=== PATIENT | male | born 1990 | race Caucasian/White ===

== ENCOUNTER 2016-12-20 13:51 | Inpatient (IN) | payer MEDICAID, OTHER ==
[~2016-12-20] VITALS: Ht 165.1 cm; Wt 55.0 kg
[2016-12-20 13:54] VITALS: BP 132/85; PULSE 88; RESP 15; TEMP 97.7; O2SAT 100
--- NOTE | 2016-12-20 14:01 | PD ---
Physical Exam Time Seen by Provider: 13:57 Narrative 26yo M sent by Yazan Og for possible seizure activity today. He is detoxing from alcohol. Reports marijuana use, but denies other illicit drug or IV use. Patient seen in triage. VS reviewed. Awaiting bed placement. Data Data Last Documented VS Vital Signs Date Time Temp Pulse Resp B/P Pulse Ox O2 Delivery O2 Flow Rate FiO2 12/20/16 13:54 97.7 88 15 132/85 100 MDM Supervised Visit with MARIVEL: Ania Juárez Dec 20, 2016 14:01
--- NOTE | 2016-12-20 14:44 | PD ---
HPI . shaking and hallucinations at [facility] Chief Complaint: Alcohol/Drug Intoxication Time Seen by Provider: 14:44 Travel History International Travel<30 days: No Contact w/Intl Traveler<30days: No Traveled to known affect area: No History of Present Illness HPI 26-year-old male with history of alcoholism here after [facility] here due to some shaking, hallucinations and what seems to be described as acute psychosis. Patient tells me that he was at [facility] and he started to feel a little bit shaky after breakfast. He says that all of a sudden he noticed that his body was shaking and he felt like he was overheating. He recalls all the events and says that people told him that he looked like he may have been having a seizure. He remembers nursing staff checking on him and remembers them rushing to try to get him to sit down and calm down. He had to be given medications to calm down. He says that he checked them [facility] on due to alcoholism and was going through detox program. He was on Ativan and being tapered down. He said he felt very dizzy and shaky. He also experienced some lightheadedness. He recalls all of the events. He also reports right upper quadrant abdominal pain. He says he has had it for some time. His mom is concerned as she thinks he may be slightly jaundiced. I contacted a nurse at [facility] named Chika. She gave me a description of what exactly happened. She tells me the patient appeared to have some acute psychosis. He was hallucinating and seeing his mom and saying that he heard her voice. He was screaming for him mom to come get him. His mom actually was no were present. Patient also started having some words with the staff. He had a very sarcastic mannerism. Additionally, the nurse reports that patient was aware of everything that was going on. He was making mention of things that he was experiencing and telling staff what he wanted. Apparently he did have an episode of of urinating on himself, but was supposedly tied up in what was going on and did not make it to the bathroom on time. [facility] Social History Alcohol Use: Yes Tobacco Use: Yes Allergies-Medications (Allergen,Severity, Reaction): Coded Allergies: No Known Allergies (Unverified , 12/20/16) Reported Meds & Prescriptions Reported Meds & Active Scripts Active Reported [asthma inhaler] DIRECTED Review of Systems General / Constitutional: No: Fever Eyes: No: Visual changes HENT: No: Headaches Cardiovascular: No: Chest Pain or Discomfort Respiratory: No: Shortness of Breath Gastrointestinal: No: Abdominal Pain Genitourinary: No: Dysuria Musculoskeletal: No: Pain Skin: No Rash Neurologic: Positive: Dizziness, No: Weakness Psychiatric: No: Depression Endocrine: No: Polydipsia Hematologic/Lymphatic: No: Easy Bruising Physical Exam Narrative GENERAL: AAO x 3, disheveled appearance SKIN: Warm and dry. No visible rashes or bruising. HEAD: Normocephalic and atraumatic. EYES: mild icterus, EOM intact ENT: No nasal drainage noted. Mucous membranes pink. Airway patent. NECK: Supple, trachea midline. No JVD. CARDIOVASCULAR: Regular rate and rhythm without murmurs, gallops, or rubs. RESPIRATORY: Breath sounds equal bilaterally. No accessory muscle use. No rhonchi or rales. GASTROINTESTINAL: Abdomen soft, + RUQ tenderness, + Gomez's sign EXTREMITIES: No cyanosis or edema. BACK: Nontender without obvious deformity. No CVA tenderness. NEURO: CN II-12 intact, design and sales consultant strength normal b/l, UE and LE 5/5, no focal deficits, no tremor present, PSYCH: AAO x 3, normal affect. Data Data Last Documented VS Vital Signs Date Time Temp Pulse Resp B/P Pulse Ox O2 Delivery O2 Flow Rate FiO2 12/20/16 13:54 97.7 88 15 132/85 100 Orders Ammonia (12/20/16 14:56) Complete Blood Count With Diff (12/20/16 14:56) Comprehensive Metabolic Panel (12/20/16 14:56) Prothrombin Time / Inr (Pt) (12/20/16 14:56) Act Partial Throm Time (Ptt) (12/20/16 14:56) Urinalysis - C+S If Indicated (12/20/16 14:56) Blood Glucose (12/20/16 14:56) Ecg Monitoring (12/20/16 14:56) Iv Access Insert/Monitor (12/20/16 14:56) Oximetry (12/20/16 14:56) Sodium Chloride 0.9% Flush (Ns Flush) (12/20/16 15:00) Drug Screen, Random Urine (12/20/16 14:56) Alcohol (Ethanol) (12/20/16 14:56) Psych Screen (12/20/16 14:56) Ondansetron Odt (Zofran Odt) (12/20/16 16:00) Us Abdomen Gallbladder (12/20/16 16:27) Lactulose Liq (Lactulose Liq) (12/20/16 16:30) Lipase (12/20/16 17:33) Labs Laboratory Tests Test 12/20/16 15:10 White Blood Count 5.8 TH/MM3 Red Blood Count 5.03 MIL/MM3 Hemoglobin 16.3 GM/DL Hematocrit 46.6 % Mean Corpuscular Volume 92.5 FL Mean Corpuscular Hemoglobin 32.4 PG Mean Corpuscular Hemoglobin 35.0 % Concent Red Cell Distribution Width 12.8 % Platelet Count 93 TH/MM3 Mean Platelet Volume 9.6 FL Neutrophils (%) (Auto) 42.0 % Lymphocytes (%) (Auto) 32.3 % Monocytes (%) (Auto) 22.3 % Eosinophils (%) (Auto) 1.7 % Basophils (%) (Auto) 1.7 % Neutrophils # (Auto) 2.4 TH/MM3 Lymphocytes # (Auto) 1.9 TH/MM3 Monocytes # (Auto) 1.3 TH/MM3 Eosinophils # (Auto) 0.1 TH/MM3 Basophils # (Auto) 0.1 TH/MM3 CBC Comment DIFF FINAL Differential Comment Prothrombin Time 10.4 SEC Prothromb Time International 0.9 RATIO Ratio Activated Partial 27.1 SEC Thromboplast Time Urine Color YELLOW Urine Turbidity CLEAR Urine pH 6.0 Urine Specific [place] 1.009 Urine Protein NEG mg/dL Urine Glucose (UA) NEG mg/dL Urine Ketones NEG mg/dL Urine Occult Blood NEG Urine Nitrite NEG Urine Bilirubin NEG Urine Urobilinogen LESS THAN 2.0 MG/DL Urine Leukocyte Esterase NEG Urine RBC 1 /hpf Urine WBC LESS THAN 1 /hpf Microscopic Urinalysis Comment CATH-CULT NOT IND Sodium Level 136 MEQ/L Potassium Level 3.8 MEQ/L Chloride Level 99 MEQ/L Carbon Dioxide Level 29.4 MEQ/L Anion Gap 8 MEQ/L Blood Urea Nitrogen 9 MG/DL Creatinine 0.82 MG/DL Estimat Glomerular Filtration 112 ML/MIN Rate Random Glucose 78 MG/DL Calcium Level 9.7 MG/DL Total Bilirubin 2.0 MG/DL Aspartate Amino Transf 254 U/L (AST/SGOT) Alanine Aminotransferase 247 U/L (ALT/SGPT) Alkaline Phosphatase 135 U/L Ammonia 42 MCMOL/L Total Protein 7.7 GM/DL Albumin 4.2 GM/DL Lipase 181 U/L Urine Opiates Screen NEG Urine Barbiturates Screen NEG Urine Amphetamines Screen NEG Urine Benzodiazepines Screen POS Urine Cocaine Screen NEG Urine Cannabinoids Screen POS Ethyl Alcohol Level LESS THAN 3 MG/DL MDM Medical Decision Making Medical Screen Exam Complete: Yes Emergency Medical Condition: Yes Medical Record Reviewed: Yes Differential Diagnosis Cholecystitis, cholelithiasis, pancreatitis, acute psychosis, drug-induced mood disorder Narrative Course 26-year-old male here with shaking, dizziness, hallucinations or abdominal pain. Patient is fairly unremarkable except for right upper quadrant tenderness and Gomez sign. Labs have been ordered. Ultrasound abdomen has been ordered. Last Impressions Gall Bladder Ultrasound 12/20/16 1627 Signed Impressions: Service Date/Time: Tuesday, December 20, 2016 16:33 - CONCLUSION: 1. Increased echogenicity of the liver suggesting diffuse fatty infiltration. 2. No gallstones identified. Maik Lopez MD Laboratory Tests Test 12/20/16 15:10 White Blood Count 5.8 TH/MM3 Red Blood Count 5.03 MIL/MM3 Hemoglobin 16.3 GM/DL Hematocrit 46.6 % Mean Corpuscular Volume 92.5 FL Mean Corpuscular Hemoglobin 32.4 PG Mean Corpuscular Hemoglobin 35.0 % Concent Red Cell Distribution Width 12.8 % Platelet Count 93 TH/MM3 Mean Platelet Volume 9.6 FL Neutrophils (%) (Auto) 42.0 % Lymphocytes (%) (Auto) 32.3 % Monocytes (%) (Auto) 22.3 % Eosinophils (%) (Auto) 1.7 % Basophils (%) (Auto) 1.7 % Neutrophils # (Auto) 2.4 TH/MM3 Lymphocytes # (Auto) 1.9 TH/MM3 Monocytes # (Auto) 1.3 TH/MM3 Eosinophils # (Auto) 0.1 TH/MM3 Basophils # (Auto) 0.1 TH/MM3 CBC Comment DIFF FINAL Differential Comment Prothrombin Time 10.4 SEC Prothromb Time International 0.9 RATIO Ratio Activated Partial 27.1 SEC Thromboplast Time Urine Color YELLOW Urine Turbidity CLEAR Urine pH 6.0 Urine Specific [place] 1.009 Urine Protein NEG mg/dL Urine Glucose (UA) NEG mg/dL Urine Ketones NEG mg/dL Urine Occult Blood NEG Urine Nitrite NEG Urine Bilirubin NEG Urine Urobilinogen LESS THAN 2.0 MG/DL Urine Leukocyte Esterase NEG Urine RBC 1 /hpf Urine WBC LESS THAN 1 /hpf Microscopic Urinalysis Comment CATH-CULT NOT IND Sodium Level 136 MEQ/L Potassium Level 3.8 MEQ/L Chloride Level 99 MEQ/L Carbon Dioxide Level 29.4 MEQ/L Anion Gap 8 MEQ/L Blood Urea Nitrogen 9 MG/DL Creatinine 0.82 MG/DL Estimat Glomerular Filtration 112 ML/MIN Rate Random Glucose 78 MG/DL Calcium Level 9.7 MG/DL Total Bilirubin 2.0 MG/DL Aspartate Amino Transf 254 U/L (AST/SGOT) Alanine Aminotransferase 247 U/L (ALT/SGPT) Alkaline Phosphatase 135 U/L Ammonia 42 MCMOL/L Total Protein 7.7 GM/DL Albumin 4.2 GM/DL Lipase 181 U/L Urine Opiates Screen NEG Urine Barbiturates Screen NEG Urine Amphetamines Screen NEG Urine Benzodiazepines Screen POS Urine Cocaine Screen NEG Urine Cannabinoids Screen POS Ethyl Alcohol Level LESS THAN 3 MG/DL I discussed all the results with patient and his parents who are at bedside. I recommend psych screen as patient appeared to have some acute psychosis at his detox facility per nurse's report. Patient and parents are in agreement. I explained all the results from the work appear in the emergency department including elevated LFTs and liver ultrasound. Patient's mom that she will have to proceed with further work up on outpatient basis. I discussed the minimally elevated ammonia level. I recommend outpatient workup for possible liver cirrhosis and liver disease. He does have some family history of liver disease and will need outpatient follow-up. He has been medically cleared for psych screen. Diagnosis Primary Impression: RUQ abdominal pain Additional Impressions: Alcohol abuse Acute psychosis Additional Instructions: Please follow up with a primary care doctor for further workup and treatment of your liver. Condition: Stable Domi Jones Dec 20, 2016 14:44
[2016-12-20] MEDS ORDERED: asthma inhaler (14:56)
[2016-12-20] MEDS ORDERED: SODIUM CHLORIDE 0.9% FLUSH 5 ML FLUSH IV FLUSH PRN (15:00)
[2016-12-20 15:29] LABS: AUTOMATED NEUTROPHIL # 2.4 TH/MM3 (1.8-7.7); BASOPHIL # 0.1 TH/MM3 (0-0.2); BASOPHIL % 1.7 % (0.0-2.0); EOSINOPHIL # 0.1 TH/MM3 (0-0.4); EOSINOPHIL % 1.7 % (0.0-4.0); HEMATOCRIT 46.6 % (39.0-51.0); LYMPH % 32.3 % (9.0-44.0); LYMPHOCYTE # 1.9 TH/MM3 (1.0-4.8); MEAN CELL VOLUME 92.5 FL (80.0-100.0); MEAN CORPUSCULAR HEMOGLOBIN 32.4 PG (27.0-34.0); MONO % 22.3 % (0.0-8.0); PLATELET COUNT 93 TH/MM3 (150-450); RED BLOOD COUNT 5.03 MIL/MM3 (4.50-5.90); RED CELL DISTRIBUTION WIDTH 12.8 % (11.6-17.2); WHITE BLOOD COUNT 5.8 TH/MM3 (4.0-11.0)
[2016-12-20 15:31] LABS: BLOOD, URINE NEG (NEG); COMMENT (UR) CATH-CULT NOT IND; CULTURE IF INDICATED CATH CULTURE NOT IND; GLUCOSE,URINE NEG (NEG); KETONE, URINE NEG (NEG); NITRITE,URINE NEG (NEG); URINE COLOR YELLOW (YELLW/STRAW)
[2016-12-20 15:44] LABS: HEMO FLAGS DIFF FINAL
[2016-12-20 15:46] LABS: ANION GAP 8 MEQ/L (5-15); AST (GOT) 254 U/L (15-37); BICARBONATE 29.4 MEQ/L (21.0-32.0); BLOOD UREA NITROGEN 9 MG/DL (7-18); CHLORIDE 99 MEQ/L (98-107); GLOMERULAR FILTRATION RATE 112 ML/MIN (>89); POTASSIUM 3.8 MEQ/L (3.5-5.1); SODIUM (NA) 136 MEQ/L (136-145)
[2016-12-20 15:49] LABS: ALKALINE PHOSPHATASE 135 U/L (45-117); ALT (GPT) 247 U/L (12-78)
[2016-12-20 15:56] LABS: ALCOHOL LESS THAN 3 MG/DL (0-5)
[2016-12-20 15:59] LABS: APTT (PATIENT) 27.1 SEC (24.3-30.1); INTERNATIONAL NORMALIZED RATIO 0.9 RATIO; PROTHROMBIN TIME - PATIENT 10.4 SEC (9.8-11.6)
[2016-12-20] MEDS ORDERED: ONDANSETRON ODT 4 MG TAB PO ONE (16:00)
[2016-12-20] MEDS ORDERED: LACTULOSE SYRUP 20 GM/30 ML CUP PO ONE (16:30)
--- NOTE | 2016-12-20 17:25 | RADRPT ---
EXAM DATE/TIME: 12/20/2016 16:33 [facility] COMPARISON: No previous studies available for comparison. INDICATIONS : Right upper quadrant pain. MEDICAL HISTORY : Right upper quadrant pain. Asthma. Alcohol use. Substance use. SURGICAL HISTORY : None. ENCOUNTER: Initial ACUITY: > 1 year PAIN SCORE: 9/10 LOCATION: Right upper quadrant MEASUREMENTS: LIVER: 14.6 cm length COMMON DUCT: Non-visualized RIGHT KIDNEY: 9.8 x 6.0 x 5.8 cm FINDINGS: LIVER: There is diffusely increased echogenicity of the liver suggesting fatty infiltration. No mass is seen . The portal vein is patent. COMMON DUCT: No intraluminal mass or stone visualized. GALLBLADDER: Contains no stones, demonstrates no wall thickening or pericholecystic fluid. PANCREAS: The pancreas was not visualized due to overlying bowel gas. RIGHT KIDNEY: No evidence of hydronephrosis, stone, or mass. CONCLUSION: 1. Increased echogenicity of the liver suggesting diffuse fatty infiltration. 2. No gallstones identified. Maik Lopez MD on December 20, 2016 at 17:19 Board Certified Radiologist. This report was verified electronically.
[2016-12-20 18:33] VITALS: BP 120/83; PULSE 89; RESP 20; O2SAT 7; O2SAT 97
[2016-12-20 21:14] VITALS: BP 119/90; PULSE 88; RESP 20; O2SAT 98
[2016-12-20 22:07] VITALS: BP 137/90; PULSE 135; RESP 20; O2SAT 97
[2016-12-20] MEDS ORDERED: ACETAMINOPHEN 325 MG TAB PO PRN (23:45)
[2016-12-20] MEDS ORDERED: MAGNESIUM HYDROXIDE SUSP 30 ML CUP PO PRN (23:45)
[2016-12-20] MEDS ORDERED: FLUMAZENIL 0.5 MG/5 ML VIAL IV PUSH PRN (23:45)
[2016-12-20] MEDS ORDERED: diphenhydrAMINE HCL 50 MG/ML VIAL - HS PRN IM (23:45)
[2016-12-20] MEDS ORDERED: ALUMINUM/MAGNESIUM/SIMETH 30 ML CUP PO PRN (23:45)
[2016-12-20] MEDS ORDERED: LORazepam 2 MG/ML VIAL IV PUSH PRN ×3 (23:45)
[2016-12-20] MEDS ORDERED: hydrOXYzine HCL 50 MG TAB PO PRN (23:45)
[2016-12-20] MEDS ORDERED: diphenhydrAMINE HCL 50 MG CAP PO PRN (23:45)
[2016-12-20] MEDS ORDERED: diphenhydrAMINE HCL 50 MG/ML VIAL IM PRN (23:45)
[2016-12-20] MEDS ORDERED: traZODone HCL 50 MG TAB PO PRN (23:45)
[2016-12-21] MEDS ORDERED: LORazepam 2 MG/ML VIAL IM ONE
[2016-12-21] MEDS: risperiDONE 1 MG TAB PO SCH ×3 (00:07→20:27)
[2016-12-21] MEDS: LORazepam 1 MG TAB PO PRN ×2 (01:34→09:25)
[2016-12-21 01:45] VITALS: BP 122/74; PULSE 120; RESP 20; TEMP 97.9; O2SAT 98
[2016-12-21] MEDS: LORazepam 2 MG/ML VIAL IV PUSH PRN (02:05)
[2016-12-21] MEDS: LORazepam 2 MG TAB PO PRN ×5 (03:39→22:34)
[2016-12-21 05:17] VITALS: BP 117/72; PULSE 98; RESP 18; TEMP 98.4; O2SAT 98
[2016-12-21] MEDS: NICOTINE 21 MG/24 HR PATCH T-DERMAL SCH (09:25)
--- NOTE | 2016-12-21 10:50 | HHI.HP ---
Provisional Diagnosis Admission Date Dec 21, 2016 at 00:37 Deal I. Unspecified psychosis, R/O delirium due to alcohol withdrawal, R/o metabolic encephalopathy Deal II. Deferred Deal III. No significant medical history Certification of Person's Competence To Provide Express and Informed Consent I have personally examined Kevyn Rojo II , a person being served at [facility] on, Dec 21, 2016 10:21. Express and informed consent means consent voluntarily given in writing, by a competent person, after sufficient explanation and disclosure of the subject matter involved to enable the person to make a knowing and willful decision without any element of force, fraud, deceit, duress, or other form of constraint or coercion. This person is 18 years of age or older, is not now known to be incompetent to consent to treatment with a guardian advocate, and does not have a health care surrogate or proxy currently making medical treatment decisions. I have found this person to be one of the following: [X] Competent to provide express and informed consent, as defined above, for voluntary admission to this facility and is competent to provide express and informed consent for treatment. He/she has the consistent capacity to make well reasoned, willful, and knowing decisions concerning his or her medical or mental health treatment. The person fully and consistently understands the purpose of the admission for examination/placement and is fully capable of personally exercising all rights assured under [place] [] Incompetent to provide express and informed consent to voluntary admission, and this is incompetent to provide express and informed consent to treatment. The person must be transferred to involuntary status and a petition for a guardian advocate filed with the Circuit Court. [] Refusing to provide express and informed consent to voluntary admission but is competent to provide express and informed consent for treatment. The person must be discharged or transferred to involuntary status. Form shall be completed within 24 hours of a person's arrival at the receiving facility and filed in the clinical record of each person: 1. Admitted on a voluntary basis 2. Permitted to provide express and informed consent to his/her own treatment 3. Allowed to transfer from involuntary to voluntary status 4. Prior to permitting a person to consent to his or her own treatment after having been previously found incompetent to consent to treatment. History of Present Illness Capacity: Has Capacity HPI Patient is a 26-year-old man, domicile with his mother, employed, but , with psychiatric history of severe alcoholism, history of previous detoxes and rehabs, he has been in detox 3 times this year, with psychiatric history, no previous suicidal attempts,here after [facility] here due to some shaking, hallucinations and what seems to be described as acute psychosis. Patient tells me that he was at [facility] and he started to feel a little bit shaky after breakfast. As per ER documentation: Marlin ocampo says that all of a sudden he noticed that his body was shaking and he felt like he was overheating. He recalls all the events and says that people told him that he looked like he may have been having a seizure. He remembers nursing staff checking on him and remembers them rushing to try to get him to sit down and calm down. He had to be given medications to calm down. He says that he checked them distort [facility] on due to alcoholism and was going through detox program. He was on Ativan and being tapered down. He said he felt very dizzy and shaky. He also experienced some lightheadedness. He recalls all of the events. Patient was found with significant elevation of liver enzyme as and ammonium, he was treated with order lactulose, ammonia levels improved, and patient was medically clear to psychiatry. The Evaluation today patient seems to be very confused, he doesn't know the reason his in the hospital, he says that he mostly came here because "my liver is very sick"but the patient is requesting to be discharged back home "doesn't have to work and I have to take care of my daughter". However as I am evaluating the patient his looking constantly outside, visibly paranoid, asking for those people that are in the ross there is nobody. He also has been stating that there are several ants in his room and they are crawling in his skin. In the unit the patient has been confused, walking in the ross, entering to others patient's room, not aggressive or agitated. Patient denies suicidal and homicidal ideation, she is partially oriented in time and place. He reports almost daily use of marijuana, heavy use of alcohol, but he has been sober for the last 2 weeks. Review of Systems Constitutional: DENIES: Diaphoretic episodes, Fatigue, Fever, Weight gain, Weight loss, Chills, Dizziness, Change in appetite, Night Sweats Endocrine: DENIES: Heat/cold intolerance, Polydipsia, Polyuria, Polyphagia Ears, nose, mouth, throat: DENIES: Tinnitus, Hearing loss, Vertigo, Nasal discharge, Oral lesions, Throat pain, Hoarseness, Ear Pain, Running Nose, Epistaxis, Sinus Pain, Toothache, Odynophagia Respiratory: DENIES: Apneas, Cough, Snoring, Wheezing, Hemoptysis, Sputum production, Shortness of breath Cardiovascular: DENIES: Chest pain, Palpitations, Syncope, Dyspnea on Exertion , PND, Lower Extremity Edema, Orthopnea, Claudication Psychiatric: COMPLAINS OF: Anxiety, Hallucinations, Delusions Substance Abuse History Drugs/Alcohol past 12 months Patient uses about 5-7 drinks of alcohol every day, but has been sober for the last 2 weeks. He reports daily use of marijuana Past Family Social History Coded Allergies: No Known Allergies (Unverified , 12/20/16) Reported Medications [asthma inhaler] No Conflict Check As Directed 12/20/16 Current Medications Medications (Trade) Dose Ordered Sig/Vitaliy Route Start Time Stop Time Status Last Admin (NS Flush) 2 ml UNSCH PRN IV FLUSH 12/20/16 15:00 (risperDAL) 1 mg BID PO 12/21/16 00:07 12/21/16 09:25 (Atarax) 50 mg Q6H PRN PO 12/20/16 23:45 (Benadryl) 50 mg Q6H PRN PO 12/20/16 23:45 12/21/16 09:25 (Benadryl Inj) 50 mg Q6H PRN IM 12/20/16 23:45 (Benadryl) 50 mg HS PRN PO 12/20/16 23:45 (Benadryl Inj) 50 mg HS PRN IM 12/20/16 23:45 (Desyrel) 50 mg HS PRN PO 12/20/16 23:45 (Tylenol) 650 mg Q4H PRN PO 12/20/16 23:45 (Milk Of Magnesia Liq) 30 ml DAILY PRN PO 12/20/16 23:45 (Mag-Al Plus Susp Liq) 30 ml Q6H PRN PO 12/20/16 23:45 (Habitrol 21 Mg Patch.24 Hr) 1 patch DAILY T-DERMAL 12/21/16 09:00 12/21/16 09:25 Miscellaneous Information 1 HS T-DERMAL 12/21/16 21:00 (Ativan) 1 mg Q4H PRN PO 12/20/16 23:45 12/21/16 09:25 (Ativan Inj) 1 mg Q4H PRN IV PUSH 12/20/16 23:45 (Ativan) 2 mg Q2H PRN PO 12/20/16 23:45 12/21/16 03:39 (Ativan Inj) 2 mg Q2H PRN IV PUSH 12/20/16 23:45 12/21/16 02:05 (Ativan Inj) 2 mg Q1H PRN IV PUSH 12/20/16 23:45 (Ativan Inj) 2 mg Q15M PRN IV PUSH 12/20/16 23:45 (Romazicon Inj) 0.2 mg Q1M PRN IV PUSH 12/20/16 23:45 Family History His father is alcoholic, he has an uncle with paranoid schizophrenia Social History Patient was born and raised in [place], he lives with his mother, his but , he has a 2 years old daughter, employed in construction, his highest level of education is high school Patient's Strengths (min. 2) Family support, employed Physical Exam No tremors, no EPS, no withdrawal symptoms, no psychomotor agitation or retardation present Vital Signs Vital Signs Date Time Temp Pulse Resp B/P Pulse Ox O2 Delivery O2 Flow Rate FiO2 12/21/16 05:17 98.4 98 18 117/72 98 12/20/16 22:07 Room Air Lab Results Labs Laboratory Tests Test 12/20/16 15:10 White Blood Count 5.8 TH/MM3 Red Blood Count 5.03 MIL/MM3 Hemoglobin 16.3 GM/DL Hematocrit 46.6 % Mean Corpuscular Volume 92.5 FL Mean Corpuscular Hemoglobin 32.4 PG Mean Corpuscular Hemoglobin 35.0 % Concent Red Cell Distribution Width 12.8 % Platelet Count 93 TH/MM3 Mean Platelet Volume 9.6 FL Neutrophils (%) (Auto) 42.0 % Lymphocytes (%) (Auto) 32.3 % Monocytes (%) (Auto) 22.3 % Eosinophils (%) (Auto) 1.7 % Basophils (%) (Auto) 1.7 % Neutrophils # (Auto) 2.4 TH/MM3 Lymphocytes # (Auto) 1.9 TH/MM3 Monocytes # (Auto) 1.3 TH/MM3 Eosinophils # (Auto) 0.1 TH/MM3 Basophils # (Auto) 0.1 TH/MM3 CBC Comment DIFF FINAL Differential Comment Prothrombin Time 10.4 SEC Prothromb Time International 0.9 RATIO Ratio Activated Partial 27.1 SEC Thromboplast Time Urine Color YELLOW Urine Turbidity CLEAR Urine pH 6.0 Urine Specific [place] 1.009 Urine Protein NEG mg/dL Urine Glucose (UA) NEG mg/dL Urine Ketones NEG mg/dL Urine Occult Blood NEG Urine Nitrite NEG Urine Bilirubin NEG Urine Urobilinogen LESS THAN 2.0 MG/DL Urine Leukocyte Esterase NEG Urine RBC 1 /hpf Urine WBC LESS THAN 1 /hpf Microscopic Urinalysis Comment CATH-CULT NOT IND Sodium Level 136 MEQ/L Potassium Level 3.8 MEQ/L Chloride Level 99 MEQ/L Carbon Dioxide Level 29.4 MEQ/L Anion Gap 8 MEQ/L Blood Urea Nitrogen 9 MG/DL Creatinine 0.82 MG/DL Estimat Glomerular Filtration 112 ML/MIN Rate Random Glucose 78 MG/DL Calcium Level 9.7 MG/DL Total Bilirubin 2.0 MG/DL Aspartate Amino Transf 254 U/L (AST/SGOT) Alanine Aminotransferase 247 U/L (ALT/SGPT) Alkaline Phosphatase 135 U/L Ammonia 42 MCMOL/L Total Protein 7.7 GM/DL Albumin 4.2 GM/DL Lipase 181 U/L Urine Opiates Screen NEG Urine Barbiturates Screen NEG Urine Amphetamines Screen NEG Urine Benzodiazepines Screen POS Urine Cocaine Screen NEG Urine Cannabinoids Screen POS Ethyl Alcohol Level LESS THAN 3 MG/DL Mental Status Examination Appearance man, age appearing, good hygiene, is just superficially cooperative, restless confused Speech: Hesitant Orientation: Person, Place (partially), Time (partially) Memory: Unremarkable Thought Process: Loose Association, Thought Blocking Language Limited due to level of confusion Fund of Knowledge Limited due to level of confusion Attention and Concentration: Abnormal Suicidal Ideation: No Previous Suicide Attempts: No Homicidal Ideation: No Previous Homicide Attempts: No Insight: Poor Judgment: Poor Affect: Irritable Mood: Anxious Motor Activity: Normal gait Assessment & Plan Problem List: (1) Unspecified psychosis Assessment & Plan: On psychiatric evaluation today patient presents with active confusion, restlessness, internally stimulated, disoriented and paranoid. Patient doesn't have any previous psychiatric history other than severe alcohol abuse, he was recently detoxed in [facility], was DC yesterday with [facility]. At this point is unclear if current presentation is secondary to metabolic encephalopathy, initially patient had elevated amnion levels(42) and liver enzymes, but ammonia levels are trending down to normal now (20), alcohol withdrawal or due to a primary major psychiatric illness decompensation. This was discussed with Dr. Johnson, he suggested the patient should be transferred to the med psych unit. Continue Risperdal 1 mg twice a day for psychosis. [facility] protocol. pantry goods worker intervention for psychosocial assessment, collateral information, to coordinate a safe discharge. ICD Code: F29 Assessment & Plan Estimated LOS: days Tariq Huffman MD Dec 21, 2016 10:50
--- NOTE | 2016-12-21 15:06 | RADRPT ---
EXAM DATE/TIME: 12/21/2016 14:22 [facility] COMPARISON: No previous studies available for comparison. INDICATIONS : Chest discomfort; encephalopathy. MEDICAL HISTORY : None. SURGICAL HISTORY : None. ENCOUNTER: Initial ACUITY: 1 day PAIN SCORE: 2/10 LOCATION: Bilateral chest FINDINGS: A single view of the chest demonstrates the lungs to be symmetrically aerated without evidence of mas s, infiltrate or effusion. The cardiomediastinal contours are unremarkable. Osseous structures are intact. CONCLUSION: No acute disease. Robel Yañez MD on December 21, 2016 at 15:04 Board Certified Radiologist. This report was verified electronically.
[2016-12-21 16:41] LABS: AUTOMATED NEUTROPHIL # 1.8 TH/MM3 (1.8-7.7); BASOPHIL # 0.1 TH/MM3 (0-0.2); BASOPHIL % 2.5 % (0.0-2.0); EOSINOPHIL # 0.1 TH/MM3 (0-0.4); EOSINOPHIL % 1.5 % (0.0-4.0); HEMATOCRIT 45.4 % (39.0-51.0); HEMO FLAGS DIFF FINAL; LYMPH % 34.4 % (9.0-44.0); LYMPHOCYTE # 1.7 TH/MM3 (1.0-4.8); MEAN CELL VOLUME 93.1 FL (80.0-100.0); MEAN CORPUSCULAR HEMOGLOBIN 32.6 PG (27.0-34.0); MONO % 24.9 % (0.0-8.0); NEUT % 36.7 % (16.0-70.0); PLATELET COUNT 120 TH/MM3 (150-450); RED BLOOD COUNT 4.88 MIL/MM3 (4.50-5.90); RED CELL DISTRIBUTION WIDTH 12.8 % (11.6-17.2); WHITE BLOOD COUNT 4.9 TH/MM3 (4.0-11.0)
[2016-12-21 17:00] LABS: ANION GAP 6 MEQ/L (5-15); AST (GOT) 239 U/L (15-37); BICARBONATE 27.8 MEQ/L (21.0-32.0); BLOOD UREA NITROGEN 11 MG/DL (7-18); CHLORIDE 98 MEQ/L (98-107); GLOMERULAR FILTRATION RATE 119 ML/MIN (>89); MAGNESIUM 2.2 MG/DL (1.5-2.5); POTASSIUM 3.9 MEQ/L (3.5-5.1); SODIUM (NA) 132 MEQ/L (136-145)
[2016-12-21 17:01] LABS: ALT (GPT) 285 U/L (12-78)
[2016-12-21 17:04] LABS: ALKALINE PHOSPHATASE 128 U/L (45-117)
[2016-12-21 17:54] VITALS: BP 141/90; PULSE 93; RESP 17; TEMP 97.9; O2SAT 99
[2016-12-21] MEDS: chlordiazePOXIDE 25 MG CAP PO SCH ×2 (18:00→20:30)
[2016-12-21] MEDS: THIAMINE HCL 100 MG TAB PO SCH (18:00)
[2016-12-21] MEDS: FOLIC ACID 1 MG TAB PO SCH (18:00)
--- NOTE | 2016-12-21 18:11 | PD.CONS ---
[facility] Reason for Consult Assist in management of medical condition. elevated liver enzymes and ammonia level Primary Care Physician No Primary Care Physician Diagnoses: History of Present Illness Written by Cat Morelos, acting as scribe for Dr. Welsh on 12/21/16 at 17:57. This is a 26 year old male patient who reports past medical history include ETOH abuse x 12 years. Patient reports he stopped drinking alcohol 8 days ago and since that time has been in [facility] going through detox. Patient reports he has had seizure about 1 year ago related to ETOH withdraw. Patient is a poor historian information gathered from patient as well as prior computerized charting. Patient was here due to some shaking, hallucinations and what seems to be described as acute psychosis. Patient tells me that he was at [facility] and he started to feel a little bit shaky after breakfast. He says that all of a sudden he noticed that his body was shaking and he felt like he was overheating. He recalls all the events and says that people told him that he looked like he may have been having a seizure. He remembers nursing staff checking on him and remembers them rushing to try to get him to sit down and calm down. He had to be given medications to calm down. He says that he checked them [facility] on due to alcoholism and was going through detox program. He was on Ativan and being tapered down. He said he felt very dizzy and shaky. He also experienced some lightheadedness. He recalls all of the events. Apparently he did have an episode of of urinating on himself, but was supposedly tied up in what was going on and did not make it to the bathroom on time. Patient at this is in the inpatient psychiatric unit we have been consulted for assistance in management of medical condition. Elevated liver enzymes and ammonia level. Patient is visibly tremulous and reacting to external stimuli during interview process. Patient reports he sees shadows and ants crawling across the floor. Patient denies shortness of breath, chest pain, N/V/D/C. Patient does endorse subjective fevers, chills and abdominal pain. Patient points to the epigastric and LUQ reports the pain is a soreness with varying intensity and radiation around to his back. Patient unable to tell how long the pain has been present. Review of Systems Except as stated in HPI: all other systems reviewed are Neg Past Family Social History Allergies: Coded Allergies: No Known Allergies (Unverified , 12/20/16) Past Medical History ETOH abuse Past Surgical History denies prior surgeries Reported Medications asthma rescue inhaler as needed Active Ordered Medications Current Medications Medications (Trade) Dose Ordered Sig/Vitaliy Route Start Time Stop Time Status Last Admin (NS Flush) 2 ml UNSCH PRN IV FLUSH 12/20/16 15:00 (risperDAL) 1 mg BID PO 12/21/16 00:07 12/21/16 09:25 (Atarax) 50 mg Q6H PRN PO 12/20/16 23:45 (Benadryl) 50 mg Q6H PRN PO 12/20/16 23:45 12/21/16 09:25 (Benadryl Inj) 50 mg Q6H PRN IM 12/20/16 23:45 (Benadryl) 50 mg HS PRN PO 12/20/16 23:45 (Benadryl Inj) 50 mg HS PRN IM 12/20/16 23:45 (Desyrel) 50 mg HS PRN PO 12/20/16 23:45 (Milk Of Magnesia Liq) 30 ml DAILY PRN PO 12/20/16 23:45 (Mag-Al Plus Susp Liq) 30 ml Q6H PRN PO 12/20/16 23:45 12/21/16 16:30 (Habitrol 21 Mg Patch.24 Hr) 1 patch DAILY T-DERMAL 12/21/16 09:00 12/21/16 09:25 Miscellaneous Information 1 HS T-DERMAL 12/21/16 21:00 (Ativan) 1 mg Q4H PRN PO 12/20/16 23:45 12/21/16 09:25 (Ativan Inj) 1 mg Q4H PRN IV PUSH 12/20/16 23:45 (Ativan) 2 mg Q2H PRN PO 12/20/16 23:45 12/21/16 16:30 (Ativan Inj) 2 mg Q2H PRN IV PUSH 12/20/16 23:45 12/21/16 02:05 (Ativan Inj) 2 mg Q1H PRN IV PUSH 12/20/16 23:45 (Ativan Inj) 2 mg Q15M PRN IV PUSH 12/20/16 23:45 (Romazicon Inj) 0.2 mg Q1M PRN IV PUSH 12/20/16 23:45 (Lactulose Liq) 30 ml DAILY PO 12/22/16 09:00 Family History maternal uncle has seizure disorder Social History Lives with mother, and child are living [place] ETOH use- drank, "all day," for the last 12 years- stopped drinking alcohol 8 days ago Tobacco use: 1 pack every 5 days Illicit drug use: marijuana occasionally, has used cocaine but reports, "that was a long time ago." patient unable to give exact time line Physical Exam Vital Signs Vital Signs Date Time Temp Pulse Resp B/P Pulse Ox O2 Delivery O2 Flow Rate FiO2 12/21/16 05:17 98.4 98 18 117/72 98 12/21/16 01:45 97.9 120 20 122/74 98 12/20/16 22:07 135 20 137/90 97 Room Air 12/20/16 21:14 88 20 119/90 98 Room Air 12/20/16 18:33 89 20 120/83 97 Room Air Physical Exam GENERAL: This is a thin, well-developed patient, visible tremulous and reacting to external stimuli during interview process SKIN: No rashes, ecchymoses or lesions. Cool and dry. HEAD: Atraumatic. Normocephalic. No temporal or scalp tenderness. EYES: Extraocular motions intact. No scleral icterus. No injection or drainage. ENT: Nose without bleeding, purulent drainage or septal hematoma. Throat without erythema, tonsillar hypertrophy or exudate. Uvula midline. Airway patent. NECK: Trachea midline. No JVD or lymphadenopathy. Supple, nontender, no meningeal signs. CARDIOVASCULAR: tachycardic without murmurs, gallops, or rubs. RESPIRATORY: Clear to auscultation. Breath sounds equal bilaterally. No wheezes , rales, or rhonchi. GASTROINTESTINAL: Abdomen soft, tender to palpation midepigastric area and LUQ MUSCULOSKELETAL: Extremities without clubbing, cyanosis, or edema. No joint tenderness, effusion, or edema noted. No calf tenderness. Negative Homans sign bilaterally. NEUROLOGICAL: Awake and alert. Motor and sensory grossly within normal limits. Five out of 5 muscle strength in all muscle groups. Laboratory Laboratory Tests Test 12/21/16 12/21/16 07:25 16:28 Ammonia 20 White Blood Count 4.9 Red Blood Count 4.88 Hemoglobin 15.9 Hematocrit 45.4 Mean Corpuscular Volume 93.1 Mean Corpuscular Hemoglobin 32.6 Mean Corpuscular Hemoglobin 35.0 Concent Red Cell Distribution Width 12.8 Platelet Count 120 Mean Platelet Volume 8.6 Neutrophils (%) (Auto) 36.7 Lymphocytes (%) (Auto) 34.4 Monocytes (%) (Auto) 24.9 Eosinophils (%) (Auto) 1.5 Basophils (%) (Auto) 2.5 Neutrophils # (Auto) 1.8 Lymphocytes # (Auto) 1.7 Monocytes # (Auto) 1.2 Eosinophils # (Auto) 0.1 Basophils # (Auto) 0.1 CBC Comment DIFF FINAL Differential Comment Sodium Level 132 Potassium Level 3.9 Chloride Level 98 Carbon Dioxide Level 27.8 Anion Gap 6 Blood Urea Nitrogen 11 Creatinine 0.78 Estimat Glomerular Filtration 119 Rate Random Glucose 79 Calcium Level 9.2 Phosphorus Level 3.8 Magnesium Level 2.2 Total Bilirubin 2.0 Aspartate Amino Transf 239 (AST/SGOT) Alanine Aminotransferase 285 (ALT/SGPT) Alkaline Phosphatase 128 Total Protein 7.5 Albumin 4.3 Result Diagram: 12/21/16 1628 12/21/16 1628 Imaging Last Impressions Chest X-Ray 12/21/16 0000 Signed Impressions: Service Date/Time: Wednesday, December 21, 2016 14:22 - CONCLUSION: No acute disease. Robel Yañez MD Gall Bladder Ultrasound 12/20/16 1627 Signed Impressions: Service Date/Time: Tuesday, December 20, 2016 16:33 - CONCLUSION: 1. Increased echogenicity of the liver suggesting diffuse fatty infiltration. 2. No gallstones identified. Maik Lopez MD Assessment and Plan Assessment and Plan 26 year old male with hx of ETOH abuse sent from [facility] for shaking and hallucinations Substance induced mood disorder hallucinations management per psychiatric team Seizure likely related to ETOH withdraw ETOH withdraw Seizure precautions CT head without contrast ordered EEG ordered thiamine and folic acid supplementation [facility] protocol Librium scheduled 50mg Q8H- will taper Elevated liver enzymes and abd pain likely related to Alcohol induced hepatitis hepatitis profile ordered and pending Consult GI US gallbladder reviewed and reveals: 1. Increased echogenicity of the liver suggesting diffuse fatty infiltration. 2. No gallstones identified. CT abd/pelvis with IV contrast also ordered lipase 181 ammonia 42 ion admission decreased to 20 after lactulose, continue lactulose daily AMS- metabolic encephalopathy- likely relate to withdraw R/O infection causes UA reviewed negative for infection no culture indicated CXR reveals no acute disease process afebrile, WBC 5.8 --> 4.9 check TSH, RPR, B12 level DVT prophylaxis: avoid chemical DVT prophylaxis in light of liver disease, early ambulation with assistance This note was transcribed by alon []. I, Dr. Alexander Underwood personally performed the history, physical exam, and medical decision making; and confirmed the accuracy of the information in the transcribed note. Authenticated by Dr. Alexander Underwood on 12/21/16 at 18:13.. Cat Morelos Dec 21, 2016 18:11 Alexander Aguilar MD Dec 30, 2016 21:44
[2016-12-21] MEDS ORDERED: DIATRIZOATE MEGLUM/DIATRIZOATE SOD 9 ML CUP PO ONE ×2 (18:45→20:00)
[2016-12-21] MEDS: REMOVE OLD NICOTINE PATCH T-DERMAL SCH (20:27)
[2016-12-21] MEDS ORDERED: IOHEXOL 350 MG/ML 10 ML VIAL (for RAD DIAG) IV ONE (23:01)
[2016-12-21] MEDS: diphenhydrAMINE HCL 50 MG CAP - HS PRN PO (23:13)
--- NOTE | 2016-12-21 23:40 | RADRPT ---
EXAM DATE/TIME: 12/21/2016 22:48 [facility] COMPARISON: No previous studies available for comparison. INDICATIONS : Altered mental status. RADIATION DOSE: 53.65 CTDIvol (mGy) ; Tabletop CT Head MEDICAL HISTORY : Seizures. SURGICAL HISTORY : None. ENCOUNTER: Initial ACUITY: 1 day PAIN SCALE: 0/10 LOCATION: cranial TECHNIQUE: Multiple contiguous axial images were obtained of the head. Using automated exposure control and adj ustment of the mA and/or kV according to patient size, radiation dose was kept as low as reasonably a chievable to obtain optimal diagnostic quality images. DICOM format image data is available electro nically for review and comparison. FINDINGS: CEREBRUM: The ventricles are normal for age. No evidence of midline shift, mass lesion, hemorrhage or acute in farction. No extra-axial fluid collections are seen. POSTERIOR FOSSA: The cerebellum and brainstem are intact. The 4th ventricle is midline. The cerebellopontine angle i s unremarkable. EXTRACRANIAL: The visualized portion of the orbits is intact. SKULL: The calvaria is intact. No evidence of skull fracture. CONCLUSION: Negative noncontrast CT brain. Ravin Clemons MD on December 21, 2016 at 23:38 Board Certified Radiologist. This report was verified electronically.
--- NOTE | 2016-12-21 23:44 | RADRPT ---
EXAM DATE/TIME: 12/21/2016 22:51 [facility] COMPARISON: US ABDOMEN - GALLBLADDER, December 20, 2016, 16:33. INDICATIONS : Bilateral lower quadrant pain. IV CONTRAST: 75 cc Omnipaque 350 (iohexol) IV ORAL CONTRAST: Prescribed oral contrast ingested. RADIATION DOSE: 4.53 CTDIvol (mGy) MEDICAL HISTORY : None SURGICAL HISTORY : None. ENCOUNTER: Initial ACUITY: 2 days PAIN SCALE: 7/10 LOCATION: Bilateral lower quadrant TECHNIQUE: Volumetric scanning of the abdomen and pelvis was performed. Using automated exposure control and ad justment of the mA and/or kV according to patient size, radiation dose was kept as low as reasonably achievable to obtain optimal diagnostic quality images. DICOM format image data is available electro nically for review and comparison. FINDINGS: LOWER LUNGS: The visualized lower lungs are clear. LIVER: Enlarged liver measuring 18.2 cm in superior/inferior dimension. Diffuse fatty change throughout the liver. No focal lesions seen. No calcified gallstones. SPLEEN: Normal size without lesion. PANCREAS: Within normal limits. KIDNEYS: Normal in size and shape. There is no mass, stone or hydronephrosis. ADRENAL GLANDS: Within normal limits. VASCULAR: There is no aortic aneurysm. BOWEL/MESENTERY: No dilated loops of small or large bowel. Oral contrast passes through to the descending colon. No evidence of free fluid. ABDOMINAL WALL: Within normal limits. RETROPERITONEUM: There is no lymphadenopathy. BLADDER: Mildly distended. No wall thickening or mass. REPRODUCTIVE: Within normal limits. INGUINAL: There is no lymphadenopathy or hernia. MUSCULOSKELETAL: Within normal limits for patient age. CONCLUSION: 1. Hepatomegaly and diffuse fatty change in the liver without focal lesion. 2. Otherwise negative CT abdomen/pelvis with contrast. Ravin Clemons MD on December 21, 2016 at 23:39 Board Certified Radiologist. This report was verified electronically.
[2016-12-22] MEDS: LORazepam 2 MG TAB PO PRN ×3 (01:06→09:03)
[2016-12-22] MEDS: chlordiazePOXIDE 25 MG CAP PO SCH ×4 (05:36→22:00)
[2016-12-22 05:54] VITALS: BP 126/78; PULSE 127; RESP 18; TEMP 98.1; O2SAT 98
[2016-12-22] MEDS: SODIUM CHLOR 0.9% 1000 ML INJ 1,000 ML IV SCH ×2 (09:00→18:41)
[2016-12-22] MEDS: LACTULOSE SYRUP 20 GM/30 ML CUP PO SCH (09:02)
[2016-12-22] MEDS: THIAMINE HCL 100 MG TAB PO SCH (09:03)
[2016-12-22] MEDS: FOLIC ACID 1 MG TAB PO SCH (09:03)
[2016-12-22] MEDS: risperiDONE 1 MG TAB PO SCH ×3 (09:03→21:01)
[2016-12-22] MEDS: NICOTINE 21 MG/24 HR PATCH T-DERMAL SCH (09:04)
[2016-12-22] MEDS ORDERED: HALOPERIDOL LACTATE 5 MG/ML AMP IM STA ×2 (10:13→15:06)
--- NOTE | 2016-12-22 10:23 | HHI.PYPN ---
Subjective Remarks Patient was seen today for psychiatric reevaluation along with nursing charge Emily, patient is disorganized, tangential with Reuben loosening of associations having active visual hallucinations, he is irritable and labile, he states that the reason his crying is because her little baby last night , he says that his murdered her. He says that there are several people around him making fun of him. As we are in the room he counts five people in the room when is just really 3. Patient says that the also 5 pizzas in the bed brought by his mother this morning. Patient is oriented in person, but completely disoriented in place, he things that he is in a pizza store, however oriented in time. Patient has been compliant with medication, agitated, disruptive in the unit, but redirectable. Patient has fluctuating level of consciousness with poor attention span. His mother came to the unit yesterday stating that she found some pills of hallucinogens in his room. Review of Systems Constitutional: DENIES: Diaphoretic episodes, Fatigue, Fever, Weight gain, Weight loss, Chills, Dizziness, Change in appetite, Night Sweats Endocrine: DENIES: Heat/cold intolerance, Polydipsia, Polyuria, Polyphagia Eyes: DENIES: Blurred vision, Diplopia, Eye inflammation, Eye pain, Vision loss , Photosensitivity, Double Vision Ears, nose, mouth, throat: DENIES: Tinnitus, Hearing loss, Vertigo, Nasal discharge, Oral lesions, Throat pain, Hoarseness, Ear Pain, Running Nose, Epistaxis, Sinus Pain, Toothache, Odynophagia Respiratory: DENIES: Apneas, Cough, Snoring, Wheezing, Hemoptysis, Sputum production, Shortness of breath Cardiovascular: DENIES: Chest pain, Palpitations, Syncope, Dyspnea on Exertion , PND, Lower Extremity Edema, Orthopnea, Claudication Integumentary: DENIES: Abnormal pigmentation, Nail changes, Pruritus, Rash Hematologic/lymphatic: DENIES: Bruising, Lymphadenopathy Immunologic/allergic: DENIES: Eczema, Urticaria Neurologic: DENIES: Abnormal gait, Headache, Localized weakness, Paresthesias, Seizures, Speech Problems, Tremor, Poor Balance Psychiatric: COMPLAINS OF: Confusion, Hallucinations, Agitation, DENIES: Anxiety, Mood changes, Depression, Suicidal Ideation, Homicidal Ideation, Delusions Objective Alert: Yes [place]: Person, Place (disoriented), Date Mood: Agitated Affect: Labile Memory Intact: Comment (impaired) Hallucinations: Auditory, Visual Delusions: Yes Delusion Type: Paranoid Suicidal: Ideation (no SI) Homicidal: Ideation (no HI) Insight/Judgment Poor Labs Test 12/21/16 16:28 White Blood Count 4.9 TH/MM3 Red Blood Count 4.88 MIL/MM3 Hemoglobin 15.9 GM/DL Hematocrit 45.4 % Mean Corpuscular Volume 93.1 FL Mean Corpuscular Hemoglobin 32.6 PG Mean Corpuscular Hemoglobin 35.0 % Concent Red Cell Distribution Width 12.8 % Platelet Count 120 TH/MM3 Mean Platelet Volume 8.6 FL Neutrophils (%) (Auto) 36.7 % Lymphocytes (%) (Auto) 34.4 % Monocytes (%) (Auto) 24.9 % Eosinophils (%) (Auto) 1.5 % Basophils (%) (Auto) 2.5 % Neutrophils # (Auto) 1.8 TH/MM3 Lymphocytes # (Auto) 1.7 TH/MM3 Monocytes # (Auto) 1.2 TH/MM3 Eosinophils # (Auto) 0.1 TH/MM3 Basophils # (Auto) 0.1 TH/MM3 CBC Comment DIFF FINAL Differential Comment Sodium Level 132 MEQ/L Potassium Level 3.9 MEQ/L Chloride Level 98 MEQ/L Carbon Dioxide Level 27.8 MEQ/L Anion Gap 6 MEQ/L Blood Urea Nitrogen 11 MG/DL Creatinine 0.78 MG/DL Estimat Glomerular Filtration 119 ML/MIN Rate Random Glucose 79 MG/DL Calcium Level 9.2 MG/DL Phosphorus Level 3.8 MG/DL Magnesium Level 2.2 MG/DL Total Bilirubin 2.0 MG/DL Aspartate Amino Transf 239 U/L (AST/SGOT) Alanine Aminotransferase 285 U/L (ALT/SGPT) Alkaline Phosphatase 128 U/L Total Protein 7.5 GM/DL Albumin 4.3 GM/DL Vitamin B12 Level 1015 PG/ML Laboratories reviewed Vitals/IOs Vital Signs Date Time Temp Pulse Resp B/P Pulse Ox O2 Delivery O2 Flow Rate FiO2 12/22/16 05:54 98.1 127 18 126/78 98 12/20/16 22:07 Room Air Intake and Output 12/21/16 12/21/16 12/22/16 08:00 16:00 00:00 Intake Total 960 ml Balance 960 ml Assessment & Plan Problem List: (1) Unspecified psychosis Assessment & Plan: Patient is having active visual hallucinations, with Reuben loosening of associations, tangential, disoriented, with fluctuation of consciousness and poor attention span. Patient has been agitated, difficult to redirect. Presentation seems to correlate with metabolic encephalopathy that could be secondary liver abnormalities of alcohol withdrawal. Hallucinogens intoxication could be playing also are all in the etiology. Patient will be Breen acted for involuntary admission. Psychiatric consult for second opinion. We will increase Risperdal to 2 mg twice a day. Haldol 5 mg IM stat for agitation and hostility. ICD Code: F29 Assessment & Plan Estimated LOS: days Justification for Cont. Inpt. Patient is acutely psychotic and is to continue psychiatric hospitalization for stabilization. Tariq Huffman MD Dec 22, 2016 10:23
--- NOTE | 2016-12-22 11:14 | HHI.PR ---
Subjective Remarks Patient denies hallucinations however looks behind the nurse as if he is looking at something denies cp/sob (+) tremors seen with RN marianne still disorganized and tangential Objective Vitals Vital Signs Date Time Temp Pulse Resp B/P Pulse Ox O2 Delivery O2 Flow Rate FiO2 12/22/16 05:54 98.1 127 18 126/78 98 12/21/16 17:54 97.9 93 17 141/90 99 I/O 12/21/16 12/21/16 12/21/16 12/22/16 12/22/16 12/22/16 07:00 15:00 23:00 07:00 15:00 23:00 Intake Total 960 ml 480 ml Balance 960 ml 480 ml Intake Oral 960 ml 480 ml Result Diagram: 12/21/16 1628 12/21/16 1628 Imaging Last Impressions Head CT 12/21/16 0000 Signed Impressions: Service Date/Time: Wednesday, December 21, 2016 22:48 - CONCLUSION: Negative noncontrast CT brain. Ravin Clemons MD Chest X-Ray 12/21/16 0000 Signed Impressions: Service Date/Time: Wednesday, December 21, 2016 14:22 - CONCLUSION: No acute disease. Robel Yañez MD Abdomen/Pelvis CT 12/21/16 0000 Signed Impressions: Service Date/Time: Wednesday, December 21, 2016 22:51 - CONCLUSION: 1. Hepatomegaly and diffuse fatty change in the liver without focal lesion. 2. Otherwise negative CT abdomen/pelvis with contrast. Ravin Clemons MD Gall Bladder Ultrasound 12/20/16 1627 Signed Impressions: Service Date/Time: Tuesday, December 20, 2016 16:33 - CONCLUSION: 1. Increased echogenicity of the liver suggesting diffuse fatty infiltration. 2. No gallstones identified. Maik Lopez MD Objective Remarks Awake and alert Anxious, tremulous No respiratory distress S1S2 + tachycardic w regular rate and rythm Clear Lungs BL Abdomen is soft, has hyperactive bowel sounds no edema in lower extremities. Medications and IVs Current Medications Medications (Trade) Dose Ordered Sig/Vitaliy Route Start Time Stop Time Status Last Admin (NS Flush) 2 ml UNSCH PRN IV FLUSH 12/20/16 15:00 (Atarax) 50 mg Q6H PRN PO 12/20/16 23:45 12/22/16 02:56 (Benadryl) 50 mg Q6H PRN PO 12/20/16 23:45 12/21/16 09:25 (Benadryl Inj) 50 mg Q6H PRN IM 12/20/16 23:45 (Benadryl) 50 mg HS PRN PO 12/20/16 23:45 12/21/16 23:13 (Benadryl Inj) 50 mg HS PRN IM 12/20/16 23:45 (Desyrel) 50 mg HS PRN PO 12/20/16 23:45 12/22/16 01:51 (Milk Of Magnesia Liq) 30 ml DAILY PRN PO 12/20/16 23:45 (Mag-Al Plus Susp Liq) 30 ml Q6H PRN PO 12/20/16 23:45 12/21/16 16:30 (Habitrol 21 Mg Patch.24 Hr) 1 patch DAILY T-DERMAL 12/21/16 09:00 12/22/16 09:04 Miscellaneous Information 1 HS T-DERMAL 12/21/16 21:00 12/21/16 20:27 (Ativan) 1 mg Q4H PRN PO 12/20/16 23:45 12/21/16 09:25 (Ativan Inj) 1 mg Q4H PRN IV PUSH 12/20/16 23:45 (Ativan) 2 mg Q2H PRN PO 12/20/16 23:45 12/22/16 09:03 (Ativan Inj) 2 mg Q2H PRN IV PUSH 12/20/16 23:45 12/22/16 12:24 (Ativan Inj) 2 mg Q1H PRN IV PUSH 12/20/16 23:45 (Ativan Inj) 2 mg Q15M PRN IV PUSH 12/20/16 23:45 (Romazicon Inj) 0.2 mg Q1M PRN IV PUSH 12/20/16 23:45 (Lactulose Liq) 30 ml DAILY PO 12/22/16 09:00 12/22/16 09:02 (Vitamin B1) 100 mg DAILY PO 12/21/16 18:00 12/22/16 09:03 (Folate) 1 mg DAILY PO 12/21/16 18:00 12/22/16 09:03 Chlordiazepoxide 50 mg 50 mg Q8HR PO 12/21/16 18:00 12/22/16 05:36 (NS 1000 ml Inj) 1,000 ml @ 100 mls/hr Q10H IV 12/22/16 09:00 12/22/16 09:00 (risperDAL) 2 mg BID PO 12/22/16 21:00 (Protonix) 40 mg DAILY PO 12/22/16 11:45 12/22/16 11:45 A/P Assessment and Plan 6 year old male with hx of ETOH abuse sent from [place] for shaking and hallucinations Substance induced mood disorder hallucinations management per psychiatric team Seizure likely related to ETOH withdrawal ETOH withdrawal/Delirium tremens Seizure precautions CT head without contrast ordered and negative EEG ordered and pending Continue thiamine and folic acid supplementation Continue [facility] protocol Librium scheduled 50mg Q8H- will taper GI consulted Elevated liver enzymes and abd pain likely related to Alcohol induced hepatitis Fatty Liver hepatitis profile negative US gallbladder reviewed and reveals: 1. Increased echogenicity of the liver suggesting diffuse fatty infiltration. 2. No gallstones identified. lipase 181 ammonia 42 ion admission decreased to 20 after lactulose, continue lactulose daily CT abdomen and pelvis showed hepatomegaly and diffuse fatty change in the liver without focal lesion. Otherwise negative CT abdomen and pelvis. AMS- metabolic encephalopathy- likely relate to withdrawal R/O infection causes UA reviewed negative for infection no culture indicated CXR reveals no acute disease process afebrile, WBC 5.8 --> 4.9 check TSH, RPR, B12 level ----> appears negative, B12 level is normal, TSH is pending. Hyponatremia Likely hypovolemic hyponatremia. I will start the patient on IV fluids with normal saline. Continue to monitor BMP. Tachycardia Likely autonomic hyperreactivity due to alcohol withdrawal. I will check an EKG. DVT prophylaxis: avoid chemical DVT prophylaxis in light of liver disease, early ambulation with assistance Alexander Aguilar MD Dec 22, 2016 11:13
--- NOTE | 2016-12-22 11:33 | PD.CONS ---
HPI History of Present Illness This is a 26 year old male with a long history of ETOH abuse. He reports that he started drinking heavily around age 14 and has continued on a daily period, with maybe the exception of a 8 month period when he was sober, since that time. He cannot quantify the amount, but states that he was making his own moonshine and drinking throughout the day. He recently went to [facility] for detox. He was sent to [place] on 12/21/16 for evaluation of DT's/ Psychosis. He was admitted to the medical psychiatric unit and is getting librium, thiamine, folic acid, and ativan prn for his DT's. GI has been consulted for elevated LFTs. The patient reports that he has a long history of "GI issues." He states that he has a history of a paralytic ileus back when he was 16 and that he has since had intermittent RUQ pain, that he describes as a dull ache that radiates around to his back. This is aggravated by greasy or spicy foods. He has occasional nausea with this. He reports that about 8-10 months ago, he was hospitalized for DT's at [facility] in [place] and during that time, had nausea/vomiting with hematemesis. He reports that he was evaluated with EGD/Colonoscopy at that time and this revealed stomach ulcers and large polyps. He states that he was also told at some point that he had "liver issues" and had a "90% chance of having serious liver problems." He cannot provide any further information regarding this and states that he was told that he needed to find a liver doctor, but that he has not done so as of yet. He denies any history of hepatitis or other known liver disease. He states that his paternal grandfather had liver disease, but he does not know what type and that someone on his mother's side also had liver disease. He states that he was told one time that he needed a liver biopsy and that he would like to have this done. He reports frequent heartburn, that is related to eating greasy/spicy foods. He is not currently having any hematemesis or melena/hematochezia. He also reports an abnormal weight loss of 20 lbs over the past 6 months. He is a poor historian. He told me that he is due for an EGD/Colonoscopy, because he is supposed to have one every 10 years because of his history of ileus and then said he had one 8-10 months ago. ( Bindu Haines) PFSH Past Medical History Anxiety/Depression PUD ETOH abuse Colon polyps Asthma Hx GI Bleeding Hx paralytic ileus Past Surgical History EGD/Colonoscopy (Bindu Haines) Coded Allergies: No Known Allergies (Unverified , 12/20/16) Medications Allergies Coded Allergies Type Severity Reaction Last Updated Verified No Known Allergies 12/20/16 No Active Scripts Medications Dose Route/Sig Days Date Category [asthma inhaler] DIRECTED 12/20/16 Reported Family History States paternal grandfather had liver disease, as well as an unknown person on his mother's side Social History Smokes 1 pack of cigarettes per week Heavy ETOH use, drinking throughout the day up until going to [employer] Occasional MJ use. Remote hx of cocaine and "other drugs" when he was 16. ( Bindu Haines) Review of Systems Constitutional: COMPLAINS OF: Fatigue, Weight loss, DENIES: Fever, Chills Respiratory: DENIES: Cough, Shortness of breath Cardiovascular: DENIES: Chest pain Gastrointestinal: COMPLAINS OF: Abdominal pain, Nausea, Heartburn, DENIES: Black stools, Bloody stools, Constipation, Diarrhea, Vomiting, Swelling of Abdomen Musculoskeletal: COMPLAINS OF: Back pain Integumentary: DENIES: Abnormal pigmentation Hematologic/lymphatic: DENIES: Bruising Psychiatric: COMPLAINS OF: Anxiety, Depression, DENIES: Confusion (Bindu Haines) GI Exam Vitals I&O Vital Signs Date Time Temp Pulse Resp B/P Pulse Ox O2 Delivery O2 Flow Rate FiO2 12/22/16 05:54 98.1 127 18 126/78 98 12/21/16 17:54 97.9 93 17 141/90 99 I/O 12/21/16 12/21/16 12/21/16 12/22/16 12/22/16 12/22/16 07:00 15:00 23:00 07:00 15:00 23:00 Intake Total 960 ml 480 ml Balance 960 ml 480 ml Intake Oral 960 ml 480 ml Imaging Last Impressions Head CT 12/21/16 0000 Signed Impressions: Service Date/Time: Wednesday, December 21, 2016 22:48 - CONCLUSION: Negative noncontrast CT brain. Ravin Clemons MD Chest X-Ray 12/21/16 0000 Signed Impressions: Service Date/Time: Wednesday, December 21, 2016 14:22 - CONCLUSION: No acute disease. Robel Yañez MD Abdomen/Pelvis CT 12/21/16 0000 Signed Impressions: Service Date/Time: Wednesday, December 21, 2016 22:51 - CONCLUSION: 1. Hepatomegaly and diffuse fatty change in the liver without focal lesion. 2. Otherwise negative CT abdomen/pelvis with contrast. Ravin Clemons MD Gall Bladder Ultrasound 12/20/16 1627 Signed Impressions: Service Date/Time: Tuesday, December 20, 2016 16:33 - CONCLUSION: 1. Increased echogenicity of the liver suggesting diffuse fatty infiltration. 2. No gallstones identified. Maik Lopez MD Laboratory Test 12/21/16 16:28 White Blood Count 4.9 TH/MM3 Red Blood Count 4.88 MIL/MM3 Hemoglobin 15.9 GM/DL Hematocrit 45.4 % Mean Corpuscular Volume 93.1 FL Mean Corpuscular Hemoglobin 32.6 PG Mean Corpuscular Hemoglobin 35.0 % Concent Red Cell Distribution Width 12.8 % Platelet Count 120 TH/MM3 Mean Platelet Volume 8.6 FL Neutrophils (%) (Auto) 36.7 % Lymphocytes (%) (Auto) 34.4 % Monocytes (%) (Auto) 24.9 % Eosinophils (%) (Auto) 1.5 % Basophils (%) (Auto) 2.5 % Neutrophils # (Auto) 1.8 TH/MM3 Lymphocytes # (Auto) 1.7 TH/MM3 Monocytes # (Auto) 1.2 TH/MM3 Eosinophils # (Auto) 0.1 TH/MM3 Basophils # (Auto) 0.1 TH/MM3 CBC Comment DIFF FINAL Differential Comment Sodium Level 132 MEQ/L Potassium Level 3.9 MEQ/L Chloride Level 98 MEQ/L Carbon Dioxide Level 27.8 MEQ/L Anion Gap 6 MEQ/L Blood Urea Nitrogen 11 MG/DL Creatinine 0.78 MG/DL Estimat Glomerular Filtration 119 ML/MIN Rate Random Glucose 79 MG/DL Calcium Level 9.2 MG/DL Phosphorus Level 3.8 MG/DL Magnesium Level 2.2 MG/DL Total Bilirubin 2.0 MG/DL Aspartate Amino Transf 239 U/L (AST/SGOT) Alanine Aminotransferase 285 U/L (ALT/SGPT) Alkaline Phosphatase 128 U/L Total Protein 7.5 GM/DL Albumin 4.3 GM/DL Vitamin B12 Level 1015 PG/ML Rapid Plasma Reagin NON-REACTIVE Physical Examination HEENT: Normocephalic; atraumatic; no jaundice. CHEST: CTA CARDIAC: RRR ABDOMEN: Soft, nondistended, mild RUQ tenderness; bowel sounds are present in all four quadrants. EXTREMITIES: No clubbing, cyanosis, or edema. SKIN: Normal; no rash; no jaundice. GEOLOGICAL AIDE: No focal deficits; alert and oriented times three. (Bindu Haines) Assessment and Plan Plan ASSESSMENT: - Elevated LFTs. Hx of heavy ETOH abuse since age 14, recently went to [facility] to detox. Reports that he was told in past that he had a "90% chance of liver disease" and that he needed a liver biopsy. He cannot state when or who said this, but states his mother is requesting a liver biopsy as well. He smokes marijuana and has a remote hx of drug use. He reports a family hx of liver disease, but cannot provide any details. Gall Bladder Ultrasound (12/20/16)----> 1. Increased echogenicity of the liver suggesting diffuse fatty infiltration. 2. No gallstones identified. Abdomen/Pelvis CT (12/21/16)----> 1. Hepatomegaly and diffuse fatty change in the liver without focal lesion. 2. Otherwise negative CT abdomen/pelvis with contrast. Hepatitis profile pending. T. Bili 2.0, AST 239, ALT 285, Alk Phosph 128. Will get liver workup. - RUQ pain. Pt states 10 year hx of RUQ pain that radiates to his back after eating. CT and US with enlarged fatty liver. No evidence of gallstones. WBC 4.9. - GERD. Pt poor historian. Initially said he last had an EGD/Colonoscopy 10 years ago and is due for one now because he needs one every 10 years, but then said he had hematemesis about 8-10 months ago at [facility] and had egd/colonoscopy at that time. PPI - ETOH abuse, DTs. Thiamine, Folic acid, Librium, Ativan prn. - Psychosis, per psych. PLAN: - TAM - Await hepatitis profile - AFP - STEVEN, ASMA, AMA - Ceruloplasmin, Alpha 1 Antitrypsin - Ferritin, Ceruloplasmin - Add PPI - Monitor labs - Obtain records from [facility] 8-10 months ago (EGD/ Colonoscopy) - Supportive care - Further recommendations to follow based on results of above - PT seen and examined by Dr. Trimble and myself and this note is written on his behalf (Bindu Haines) Physician Comments Patient seen and examined Agree with above Continue with current supportive care Monitor labs Await old records Liver workup in progress (Shahzad Trimble MD) Bindu Haines Dec 22, 2016 11:33 Shahzad Trimble MD Dec 22, 2016 17:54
[2016-12-22] MEDS: PANTOPRAZOLE SOD 40 MG DELAYED RELEASE TAB PO SCH (11:45)
[2016-12-22] MEDS: LORazepam 2 MG/ML VIAL IV PUSH PRN (12:24)
[2016-12-22 13:16] LABS: AUTOMATED NEUTROPHIL # 1.5 TH/MM3 (1.8-7.7); BASOPHIL # 0.1 TH/MM3 (0-0.2); BASOPHIL % 2.7 % (0.0-2.0); EOSINOPHIL # 0.1 TH/MM3 (0-0.4); EOSINOPHIL % 2.3 % (0.0-4.0); HEMATOCRIT 47.4 % (39.0-51.0); HEMO FLAGS DIFF FINAL; LYMPH % 36.4 % (9.0-44.0); LYMPHOCYTE # 1.8 TH/MM3 (1.0-4.8); MEAN CELL VOLUME 93.8 FL (80.0-100.0); MONO % 29.3 % (0.0-8.0); NEUT % 29.3 % (16.0-70.0); PLATELET COUNT 144 TH/MM3 (150-450); RED BLOOD COUNT 5.05 MIL/MM3 (4.50-5.90); RED CELL DISTRIBUTION WIDTH 12.8 % (11.6-17.2); WHITE BLOOD COUNT 5.1 TH/MM3 (4.0-11.0)
[2016-12-22 14:01] LABS: ANION GAP 11 MEQ/L (5-15); BICARBONATE 26.2 MEQ/L (21.0-32.0); BLOOD UREA NITROGEN 9 MG/DL (7-18); CHLORIDE 98 MEQ/L (98-107); GLOMERULAR FILTRATION RATE 104 ML/MIN (>89); POTASSIUM 3.8 MEQ/L (3.5-5.1); SODIUM (NA) 135 MEQ/L (136-145)
[2016-12-22 14:11] LABS: FERRITIN 1605 NG/ML (26-388); TRANSFERRIN IRON PROFILE 302 MG/DL (200-360)
[2016-12-22 14:18] LABS: HDL CHOLESTEROL 42.6 MG/DL (40.0-60.0); LDL CHOLESTEROL 161 MG/DL (0-99)
[2016-12-22 17:10] LABS: HEMOGLOBIN A1a 0.7 %; HEMOGLOBIN A1b 0.7 %; HEMOGLOBIN Ao 86.6 %; HEMOGLOBIN F 0.6 %; HEMOGLOBIN LA1C 1.8 %; HEMOGLOBIN P3 3.2 %
[2016-12-22 19:44] VITALS: BP 126/78; PULSE 127; RESP 18; TEMP 98.1; O2SAT 98
--- NOTE | 2016-12-22 20:09 | MG ---
cc: EMERY PHELAN Lab No: [id number] Date: 12/22/16 Age: 26 Sex: M Race: HISTORY Awake, shaking, hallucinating. Hyperventilation not performed. Possible seizure, detoxing from alcohol. MEDICATIONS 1. Thiamine. 2. Atarax. 3. Librium 4. Ativan. A lot of muscle activity is noted. Diffuse beta rhythms are seen consistent with the benzodiazepine use. The recording overall is synchronous and symmetric. At times a 7-8 Hz, 60 microvolt symmetric posterior rhythm is seen. No hemisphere asymmetries are noted. No epileptiform or seizure activity is seen. Bitemporal and bifrontal muscle artifact is at times seen. Photic stimulation is performed at the end of the recording without significant posterior driving. IMPRESSION Essentially unremarkable EEG except for medication effect from the benzodiazepines. No epileptiform or seizure activity is noted. There were no hemisphere asymmetries. MD FELIPA Banks/REJI /5:08 PM /7:59 PM
[2016-12-22] MEDS: REMOVE OLD NICOTINE PATCH T-DERMAL SCH (21:00)
[2016-12-23] MEDS: SODIUM CHLOR 0.9% 1000 ML INJ 1,000 ML IV SCH ×3 (05:00→22:51)
[2016-12-23] MEDS: chlordiazePOXIDE 25 MG CAP PO SCH ×3 (06:04→21:16)
[2016-12-23 06:07] VITALS: BP 121/66; PULSE 17; RESP 17; TEMP 98; O2SAT 98
[2016-12-23] MEDS: THIAMINE HCL 100 MG TAB PO SCH (09:10)
[2016-12-23] MEDS: FOLIC ACID 1 MG TAB PO SCH (09:11)
[2016-12-23] MEDS: LACTULOSE SYRUP 20 GM/30 ML CUP PO SCH (09:11)
[2016-12-23] MEDS: PANTOPRAZOLE SOD 40 MG DELAYED RELEASE TAB PO SCH (09:11)
[2016-12-23] MEDS: risperiDONE 1 MG TAB PO SCH ×2 (09:11→21:16)
[2016-12-23] MEDS: NICOTINE 21 MG/24 HR PATCH T-DERMAL SCH (09:12)
--- NOTE | 2016-12-23 10:27 | HHI.GIFU ---
Subjective Remarks Resting in bed. No n/v. Mild RUQ tenderness on exam. Not having RUQ pain otherwise today. States he is depressed. (Bindu Haines) Objective Vitals I&O Vital Signs Date Time Temp Pulse Resp B/P Pulse Ox O2 Delivery O2 Flow Rate FiO2 12/23/16 06:07 98.0 17 17 121/66 98 12/22/16 19:44 Automatic Cuff I/O 12/22/16 12/22/16 12/22/16 12/23/16 12/23/16 12/23/16 06:59 14:59 22:59 06:59 14:59 22:59 Intake Total 1200 ml 0 ml 240 ml Output Total 111 ml Balance 1200 ml -111 ml 240 ml Intake Oral 1200 ml 0 ml 240 ml Output Urine Total 111 ml # Voids 3 1 # Bowel Movements 1 Laboratory Laboratory Tests Test 12/22/16 12:59 White Blood Count 5.1 Red Blood Count 5.05 Hemoglobin 16.1 Hematocrit 47.4 Mean Corpuscular Volume 93.8 Mean Corpuscular Hemoglobin 32.0 Mean Corpuscular Hemoglobin 34.0 Concent Red Cell Distribution Width 12.8 Platelet Count 144 Mean Platelet Volume 8.3 Neutrophils (%) (Auto) 29.3 Lymphocytes (%) (Auto) 36.4 Monocytes (%) (Auto) 29.3 Eosinophils (%) (Auto) 2.3 Basophils (%) (Auto) 2.7 Neutrophils # (Auto) 1.5 Lymphocytes # (Auto) 1.8 Monocytes # (Auto) 1.5 Eosinophils # (Auto) 0.1 Basophils # (Auto) 0.1 CBC Comment DIFF FINAL Differential Comment Sodium Level 135 Potassium Level 3.8 Chloride Level 98 Carbon Dioxide Level 26.2 Anion Gap 11 Blood Urea Nitrogen 9 Creatinine 0.87 Estimat Glomerular Filtration 104 Rate Random Glucose 83 Hemoglobin A1c 4.8 Calcium Level 9.6 Iron Level 107 Total Iron Binding Capacity 423 Percent Iron Saturation 25.3 Ferritin 1605 Ammonia 14 Triglycerides Level 102 Cholesterol Level 224 LDL Cholesterol 161 HDL Cholesterol 42.6 Cholesterol/HDL Ratio 5.25 Tumor Marker Alpha Fetoprotein 2.8 Thyroid Stimulating Hormone 3.220 3rd Gen Imaging Last Impressions Head CT 12/21/16 0000 Signed Impressions: Service Date/Time: Wednesday, December 21, 2016 22:48 - CONCLUSION: Negative noncontrast CT brain. Ravin Clemons MD Chest X-Ray 12/21/16 0000 Signed Impressions: Service Date/Time: Wednesday, December 21, 2016 14:22 - CONCLUSION: No acute disease. Robel Yañez MD Abdomen/Pelvis CT 12/21/16 0000 Signed Impressions: Service Date/Time: Wednesday, December 21, 2016 22:51 - CONCLUSION: 1. Hepatomegaly and diffuse fatty change in the liver without focal lesion. 2. Otherwise negative CT abdomen/pelvis with contrast. Ravin Clemons MD Gall Bladder Ultrasound 12/20/16 1627 Signed Impressions: Service Date/Time: Tuesday, December 20, 2016 16:33 - CONCLUSION: 1. Increased echogenicity of the liver suggesting diffuse fatty infiltration. 2. No gallstones identified. Maik Lopez MD Physical Exam HEENT: Normocephalic; atraumatic; no jaundice CHEST: CTA CARDIAC: RRR ABDOMEN: Soft, nondistended, mild RUQ tenderness; no hepatosplenomegaly; bowel sounds are present in all four quadrants. EXTREMITIES: No clubbing, cyanosis, or edema. SKIN: Normal; no rash; no jaundice. DISASTER RECOVERY CONSULTANT: No focal deficits; alert and oriented times three. (Bindu HainesP) Assessment and Plan Plan ASSESSMENT: - Elevated LFTs. Hx of heavy ETOH abuse since age 14, recently went to [facility] to detox. Reports that he was told in past that he had a "90% chance of liver disease" and that he needed a liver biopsy. He cannot state when or who said this, but states his mother is requesting a liver biopsy as well. He smokes marijuana and has a remote hx of drug use. He reports a family hx of liver disease, but cannot provide any details. Gall Bladder Ultrasound (12/20/16)----> 1. Increased echogenicity of the liver suggesting diffuse fatty infiltration. 2. No gallstones identified. Abdomen/Pelvis CT (12/21/16)----> 1. Hepatomegaly and diffuse fatty change in the liver without focal lesion. 2. Otherwise negative CT abdomen/pelvis with contrast. Hepatitis profile pending. T. Bili 2.0, AST 239, ALT 285, Alk Phosph 128 yesterday. Hepatitis negative. AFP 2.8, Ferritin 1605, Iron Saturation 25.3%, STEVEN pending, AMA pending, ASMA pending, Ceruloplasmin pending, Alpha 1 Antitrypsin pending. Will await liver workup, obtain records, monitor LFTs. - RUQ pain. Pt states 10 year hx of RUQ pain that radiates to his back after eating. CT and US with enlarged fatty liver. No evidence of gallstones. WBC 4.9. Mild tenderness on exam, but otherwise not having RUQ pain today. - GERD. Pt poor historian. Initially said he last had an EGD/Colonoscopy 10 years ago and is due for one now because he needs one every 10 years, but then said he had hematemesis about 8-10 months ago at [facility] and had egd/colonoscopy at that time. PPI - ETOH abuse, DTs. Thiamine, Folic acid, Librium, Ativan prn. - Psychosis, per psych. PLAN: - TAM - PPI - Await STEVEN, ASMA, AMA - Await Ceruloplasmin, Alpha 1 Antitrypsin - Supportive care - Please ensure that the medical record release form is signed and faxed to [facility] to obtain records for egd/colonoscopy, labs, pathology, imaging, and progress notes from hospitalization 8-10 months ago. This was requested yesterday and not sent. D/W nurse - Further recommendations to follow based on results of above - PT seen and examined by Dr. Trimble and myself and this note is written on his behalf (Bindu Haines) Physician Comments Patient seen and examined Agree with above Continue with current supportive care Monitor labs Alcoholic hepatitis seems to be resolving slowly but surely (Shahzad Trimble MD) Bindu Haines Dec 23, 2016 10:27 Shahzad Trimble MD Dec 23, 2016 16:59
--- NOTE | 2016-12-23 12:47 | HHI.PYPN ---
Subjective Remarks Patient was seen today for psychiatric reevaluation with Medical student Raisa , patient is awake, watching TV, calm and cooperative. Patient says that he has been a little bit confused "I was thinking of the TV was in the floor before , and people from the TV were referring to me", patient also says that he has been feeling very sad since his daughter "somebody murdered her", however, patient accepts the possibility that this may not be true. Patient continues to be a little bit disorganized, but in general doing much better, with a conserved sensorium at the moment of the evaluation, oriented 3, but was visible fluctuation of consciousness. No agitation or aggressive behavior reported. Patient has been compliant with his medications, no significant side effects reported. No active withdrawal at this moment. Review of Systems Eyes: DENIES: Blurred vision, Diplopia, Eye inflammation, Eye pain, Vision loss , Photosensitivity, Double Vision Ears, nose, mouth, throat: DENIES: Tinnitus, Hearing loss, Vertigo, Nasal discharge, Oral lesions, Throat pain, Hoarseness, Ear Pain, Running Nose, Epistaxis, Sinus Pain, Toothache, Odynophagia Respiratory: DENIES: Apneas, Cough, Snoring, Wheezing, Hemoptysis, Sputum production, Shortness of breath Genitourinary: DENIES: Sexual dysfunction, Urinary frequency, Urinary incontinence, Urgency, Hematuria, Dysuria, Nocturia, Penile Discharge, Testicular Pain, Testicular Swelling Musculoskeletal: DENIES: Joint pain, Muscle aches, Stiffness, Joint Swelling, Back pain, Neck pain Integumentary: DENIES: Abnormal pigmentation, Nail changes, Pruritus, Rash Hematologic/lymphatic: DENIES: Bruising, Lymphadenopathy Neurologic: DENIES: Abnormal gait, Headache, Localized weakness, Paresthesias, Seizures, Speech Problems, Tremor, Poor Balance Psychiatric: COMPLAINS OF: Hallucinations, Delusions Objective Alert: Yes Hubbard: Person, Place (disoriented), Date Mood: Agitated Affect: Labile Memory Intact: Comment (impaired) Hallucinations: Auditory, Visual Delusions: Yes Delusion Type: Paranoid Suicidal: Ideation (no SI) Homicidal: Ideation (no HI) Insight/Judgment Improved Labs Test 12/22/16 12:59 White Blood Count 5.1 TH/MM3 Red Blood Count 5.05 MIL/MM3 Hemoglobin 16.1 GM/DL Hematocrit 47.4 % Mean Corpuscular Volume 93.8 FL Mean Corpuscular Hemoglobin 32.0 PG Mean Corpuscular Hemoglobin 34.0 % Concent Red Cell Distribution Width 12.8 % Platelet Count 144 TH/MM3 Mean Platelet Volume 8.3 FL Neutrophils (%) (Auto) 29.3 % Lymphocytes (%) (Auto) 36.4 % Monocytes (%) (Auto) 29.3 % Eosinophils (%) (Auto) 2.3 % Basophils (%) (Auto) 2.7 % Neutrophils # (Auto) 1.5 TH/MM3 Lymphocytes # (Auto) 1.8 TH/MM3 Monocytes # (Auto) 1.5 TH/MM3 Eosinophils # (Auto) 0.1 TH/MM3 Basophils # (Auto) 0.1 TH/MM3 CBC Comment DIFF FINAL Differential Comment Sodium Level 135 MEQ/L Potassium Level 3.8 MEQ/L Chloride Level 98 MEQ/L Carbon Dioxide Level 26.2 MEQ/L Anion Gap 11 MEQ/L Blood Urea Nitrogen 9 MG/DL Creatinine 0.87 MG/DL Estimat Glomerular Filtration 104 ML/MIN Rate Random Glucose 83 MG/DL Hemoglobin A1c 4.8 % Calcium Level 9.6 MG/DL Iron Level 107 MCG/DL Total Iron Binding Capacity 423 MCG/DL Percent Iron Saturation 25.3 % Ferritin 1605 NG/ML Ammonia 14 MCMOL/L Triglycerides Level 102 MG/DL Cholesterol Level 224 MG/DL LDL Cholesterol 161 MG/DL HDL Cholesterol 42.6 MG/DL Cholesterol/HDL Ratio 5.25 RATIO Tumor Marker Alpha Fetoprotein 2.8 NG/ML Thyroid Stimulating Hormone 3.220 uIU/ML 3rd Gen Vitals/IOs Vital Signs Date Time Temp Pulse Resp B/P Pulse Ox O2 Delivery O2 Flow Rate FiO2 12/23/16 06:07 98.0 17 17 121/66 98 12/20/16 22:07 Room Air Intake and Output 12/22/16 12/22/16 12/23/16 08:00 16:00 00:00 Intake Total 480 ml 720 ml 0 ml Output Total 111 ml Balance 480 ml 720 ml -111 ml Assessment & Plan Problem List: (1) Unspecified psychosis Assessment & Plan: Patient continued to be acutely psychotic, his visual hallucinations and perceptual disturbances seems to be decreased. Continue Risperdal 2 mg twice a day. Continue CIIWA. ICD Code: F29 Assessment & Plan Estimated LOS: days Justification for Cont. Inpt. Patient needs to continue psychiatric hospitalization for stabilization and safety. Tariq Huffman MD Dec 23, 2016 12:47
--- NOTE | 2016-12-23 13:44 | HHI.PR ---
Subjective Remarks patient is more oriented denies visual or auditory hallucinations denies cp/sob denies fevers/chills tachycardia seems to be better Objective Vitals Vital Signs Date Time Temp Pulse Resp B/P Pulse Ox O2 Delivery O2 Flow Rate FiO2 12/23/16 06:07 98.0 17 17 121/66 98 12/22/16 19:44 Automatic Cuff I/O 12/22/16 12/22/16 12/22/16 12/23/16 12/23/16 12/23/16 07:00 15:00 23:00 07:00 15:00 23:00 Intake Total 1200 ml 0 ml 240 ml 720 ml Output Total 111 ml Balance 1200 ml -111 ml 240 ml 720 ml Intake Oral 1200 ml 0 ml 240 ml 720 ml Output Urine Total 111 ml # Voids 3 1 # Bowel Movements 1 Result Diagram: 12/22/16 1259 12/22/16 1259 Imaging Last Impressions Head CT 12/21/16 0000 Signed Impressions: Service Date/Time: Wednesday, December 21, 2016 22:48 - CONCLUSION: Negative noncontrast CT brain. Ravin Clemons MD Chest X-Ray 12/21/16 0000 Signed Impressions: Service Date/Time: Wednesday, December 21, 2016 14:22 - CONCLUSION: No acute disease. Robel Yañez MD Abdomen/Pelvis CT 12/21/16 0000 Signed Impressions: Service Date/Time: Wednesday, December 21, 2016 22:51 - CONCLUSION: 1. Hepatomegaly and diffuse fatty change in the liver without focal lesion. 2. Otherwise negative CT abdomen/pelvis with contrast. Ravin Clemons MD Gall Bladder Ultrasound 12/20/16 1627 Signed Impressions: Service Date/Time: Tuesday, December 20, 2016 16:33 - CONCLUSION: 1. Increased echogenicity of the liver suggesting diffuse fatty infiltration. 2. No gallstones identified. Maik Lopez MD Objective Remarks Awake and alert Anxious, tremulous No respiratory distress S1S2 + tachycardic w regular rate and rythm Clear Lungs BL Abdomen is soft, has hyperactive bowel sounds no edema in lower extremities. Medications and IVs Current Medications Medications (Trade) Dose Ordered Sig/Vitaliy Route Start Time Stop Time Status Last Admin (NS Flush) 2 ml UNSCH PRN IV FLUSH 12/20/16 15:00 (Atarax) 50 mg Q6H PRN PO 12/20/16 23:45 12/22/16 02:56 (Benadryl) 50 mg Q6H PRN PO 12/20/16 23:45 12/21/16 09:25 (Benadryl Inj) 50 mg Q6H PRN IM 12/20/16 23:45 (Benadryl) 50 mg HS PRN PO 12/20/16 23:45 12/21/16 23:13 (Benadryl Inj) 50 mg HS PRN IM 12/20/16 23:45 (Desyrel) 50 mg HS PRN PO 12/20/16 23:45 12/22/16 01:51 (Milk Of Magnesia Liq) 30 ml DAILY PRN PO 12/20/16 23:45 (Mag-Al Plus Susp Liq) 30 ml Q6H PRN PO 12/20/16 23:45 12/21/16 16:30 (Habitrol 21 Mg Patch.24 Hr) 1 patch DAILY T-DERMAL 12/21/16 09:00 12/23/16 09:12 Miscellaneous Information 1 HS T-DERMAL 12/21/16 21:00 12/21/16 20:27 (Ativan) 1 mg Q4H PRN PO 12/20/16 23:45 12/21/16 09:25 (Ativan Inj) 1 mg Q4H PRN IV PUSH 12/20/16 23:45 (Ativan) 2 mg Q2H PRN PO 12/20/16 23:45 12/22/16 09:03 (Ativan Inj) 2 mg Q2H PRN IV PUSH 12/20/16 23:45 12/22/16 12:24 (Ativan Inj) 2 mg Q1H PRN IV PUSH 12/20/16 23:45 12/22/16 14:20 (Ativan Inj) 2 mg Q15M PRN IV PUSH 12/20/16 23:45 (Romazicon Inj) 0.2 mg Q1M PRN IV PUSH 12/20/16 23:45 (Lactulose Liq) 30 ml DAILY PO 12/22/16 09:00 12/23/16 09:11 (Vitamin B1) 100 mg DAILY PO 12/21/16 18:00 12/23/16 09:10 (Folate) 1 mg DAILY PO 12/21/16 18:00 12/23/16 09:11 Chlordiazepoxide 50 mg 50 mg Q8HR PO 12/21/16 18:00 12/23/16 06:04 (NS 1000 ml Inj) 1,000 ml @ 100 mls/hr Q10H IV 12/22/16 09:00 12/23/16 05:00 (risperDAL) 2 mg BID PO 12/22/16 21:00 12/23/16 09:11 (Protonix) 40 mg DAILY PO 12/22/16 11:45 12/23/16 09:11 Urinary Catheter: No Vascular Central Line Catheter: No A/P Problem List: (1) Alcohol withdrawal delirium ICD Code: F10.231 Status: Acute (2) Transaminitis ICD Code: R74.0 Status: Acute (3) Alcohol withdrawal seizure ICD Code: F10.239 Status: Resolved Assessment and Plan 6 year old male with hx of ETOH abuse sent from [facility] for shaking and hallucinations Substance induced mood disorder hallucinations management per psychiatric team Seizure likely related to ETOH withdrawal ETOH withdrawal/Delirium tremens Seizure precautions CT head without contrast ordered and negative EEG ordered and unremarkable Continue thiamine and folic acid supplementation Continue CIWA protocol Decrease librium dose to 25 mg po Q8 hrs. Elevated liver enzymes and abd pain likely related to Alcohol induced hepatitis Fatty Liver hepatitis profile negative US gallbladder reviewed and reveals: 1. Increased echogenicity of the liver suggesting diffuse fatty infiltration. 2. No gallstones identified. lipase 181 ammonia 42 ion admission decreased to 20 after lactulose, continue lactulose daily CT abdomen and pelvis showed hepatomegaly and diffuse fatty change in the liver without focal lesion. Otherwise negative CT abdomen and pelvis. AMS- metabolic encephalopathy- likely relate to withdrawal R/O infection causes UA reviewed negative for infection no culture indicated CXR reveals no acute disease process afebrile, WBC 5.8 --> 4.9 check TSH, RPR, B12 level ----> appears negative, B12 level is normal, TSH is normal 12/23 encephalopathy resolving. Due to etoh withdrawal Hyponatremia Likely hypovolemic hyponatremia. I will start the patient on IV fluids with normal saline. Continue to monitor BMP. 12/23 Improving. Continue to monitor BMP Tachycardia Likely autonomic hyperreactivity due to alcohol withdrawal. 12/23 check EKG. Tachycardia seems to be improving. Tobacco abuse advised smoking cessation - continue nicotine patch. DVT prophylaxis: avoid chemical DVT prophylaxis in light of liver disease, early ambulation with assistance Alexander Aguilar MD Dec 23, 2016 13:43
[2016-12-23 14:30] LABS: AUTOMATED NEUTROPHIL # 1.6 TH/MM3 (1.8-7.7); BASOPHIL # 0.1 TH/MM3 (0-0.2); BASOPHIL % 2.3 % (0.0-2.0); EOSINOPHIL # 0.1 TH/MM3 (0-0.4); EOSINOPHIL % 2.7 % (0.0-4.0); HEMO FLAGS DIFF FINAL; LYMPH % 32.8 % (9.0-44.0); LYMPHOCYTE # 1.4 TH/MM3 (1.0-4.8); MEAN CELL VOLUME 94.8 FL (80.0-100.0); MEAN CORPUSCULAR HEMOGLOBIN 32.8 PG (27.0-34.0); MEAN CORPUSCULAR HGB CONC 34.6 % (32.0-36.0); MONO % 24.4 % (0.0-8.0); NEUT % 37.8 % (16.0-70.0); PLATELET COUNT 158 TH/MM3 (150-450); RED BLOOD COUNT 4.54 MIL/MM3 (4.50-5.90); RED CELL DISTRIBUTION WIDTH 12.7 % (11.6-17.2); WHITE BLOOD COUNT 4.2 TH/MM3 (4.0-11.0)
[2016-12-23 15:05] LABS: INDIRECT BILIRUBIN 0.8 MG/DL (0.0-0.8); MAGNESIUM 2.2 MG/DL (1.5-2.5); TOTAL BILIRUBIN ADULT 1.4 MG/DL (0.2-1.0)
[2016-12-23 18:00] VITALS: BP 125/72; PULSE 107; RESP 18; TEMP 98.7; O2SAT 98
[2016-12-23] MEDS: REMOVE OLD NICOTINE PATCH T-DERMAL SCH (21:00)
[2016-12-23] MEDS: LORazepam 1 MG TAB PO PRN (21:17)
[2016-12-23] MEDS: diphenhydrAMINE HCL 50 MG CAP - HS PRN PO (22:58)
[2016-12-24] MEDS: chlordiazePOXIDE 25 MG CAP PO SCH (05:18)
[2016-12-24 06:02] VITALS: BP 107/52; PULSE 74; RESP 15; O2SAT 99
[2016-12-24] MEDS: risperiDONE 1 MG TAB PO SCH (09:09)
[2016-12-24] MEDS: FOLIC ACID 1 MG TAB PO SCH (09:09)
[2016-12-24] MEDS: LACTULOSE SYRUP 20 GM/30 ML CUP PO SCH (09:09)
[2016-12-24] MEDS: PANTOPRAZOLE SOD 40 MG DELAYED RELEASE TAB PO SCH (09:10)
[2016-12-24] MEDS: NICOTINE 21 MG/24 HR PATCH T-DERMAL SCH (09:10)
[2016-12-24] MEDS: THIAMINE HCL 100 MG TAB PO SCH (09:10)
--- NOTE | 2016-12-24 09:29 | HHI.DS ---
Psychiatry Discharge Summary Inpatient Psychiatric care?: Yes Advance Directive: No Reason Not Provided: refused Mental Health AdvanceDirective: No Health Care Proxy: No Admission Admission Date Dec 21, 2016 at 00:37 Admission Diagnosis: (1) Acute psychosis ICD Code: F23 (2) Unspecified psychosis ICD Code: F29 Brief History Patient is a 26-year-old man, domicile with his mother, employed, but , with psychiatric history of severe alcoholism, history of previous detoxes and rehabs, he has been in detox 3 times this year, with psychiatric history, no previous suicidal attempts,here after [facility] here due to some shaking, hallucinations and what seems to be described as acute psychosis. Patient tells me that he was at [facility] and he started to feel a little bit shaky after breakfast. As per ER documentation: Marlin ocampo says that all of a sudden he noticed that his body was shaking and he felt like he was overheating. He recalls all the events and says that people told him that he looked like he may have been having a seizure. He remembers nursing staff checking on him and remembers them rushing to try to get him to sit down and calm down. He had to be given medications to calm down. He says that he checked them distort [facility] on due to alcoholism and was going through detox program. He was on Ativan and being tapered down. He said he felt very dizzy and shaky. He also experienced some lightheadedness. He recalls all of the events. Patient was found with significant elevation of liver enzyme as and ammonium, he was treated with order lactulose, ammonia levels improved, and patient was medically clear to psychiatry. The Evaluation today patient seems to be very confused, he doesn't know the reason his in the hospital, he says that he mostly came here because "my liver is very sick"but the patient is requesting to be discharged back home "doesn't have to work and I have to take care of my daughter". However as I am evaluating the patient his looking constantly outside, visibly paranoid, asking for those people that are in the ross there is nobody. He also has been stating that there are several ants in his room and they are crawling in his skin. In the unit the patient has been confused, walking in the ross, entering to others patient's room, not aggressive or agitated. Patient denies suicidal and homicidal ideation, she is partially oriented in time and place. He reports almost daily use of marijuana, heavy use of alcohol, but he has been sober for the last 2 weeks. Tobacco Use In Past 30 Days: 5 or More Cigarettes/Day Alcohol Use: 4 or More Times Per Week Hospital Course Patient was admitted in the med psych unit, transferred from the 2700 unit due to acute psychosis consisting in visual hallucinations, paranoia, disorganized behavior, loosening of associations. He should also have pronounced sensorium deficit. Since the patient had elevated liver enzyme as an Imodium with diagnosis hepatic encephalopathy, but his mother are suicide that he was actively using hallucinogens for coming to the hospital. Patient had psychosocial and psychiatric assessment done. Appropriate safety measures were taken. A she was started in medical medication by primary hospitalist team. He was also restart and in Risperdal 1 mg twice a day that was titrated up as patient needed and he could tolerate. He was also in a CIWA protocol. with the days psychosis start to decrease, patient became more aware of the surrounding a more participatory in conversation and treatment. Most of the time he demonstrated a good behavior, he was calm and cooperative and not aggressive. Compliant with his medications, no significant side effects reported. We communicated with his mother in multiple locations to coordinate treatment and safety discharge. At the moment of discharge patient is a baseline, he denies depression, he denies anxiety, suicidal or homicidal ideation, visual and auditory hallucinations. Patient was widely educated about the importance of medication compliance, but the most important extensive support and motivational interviewing was provided in order to encourage to keep sobriety and avoid alcohol use after discharge.. Results Blood Pressure 107 / 52 Vital Signs Date Time Temp Pulse Resp B/P Pulse Ox O2 Delivery O2 Flow Rate FiO2 12/24/16 06:02 74 15 107/52 99 12/23/16 18:00 98.7 12/20/16 22:07 Room Air Laboratory Tests Test 12/21/16 12/22/16 12/23/16 16:28 12:59 13:29 Platelet Count 120 TH/MM3 144 TH/MM3 (150-450) (150-450) Monocytes (%) (Auto) 24.9 % 29.3 % 24.4 % (0.0-8.0) (0.0-8.0) (0.0-8.0) Basophils (%) (Auto) 2.5 % (0.0-2.0) 2.7 % (0.0-2.0) 2.3 % (0.0-2.0) Monocytes # (Auto) 1.2 TH/MM3 1.5 TH/MM3 1.0 TH/MM3 (0-0.9) (0-0.9) (0-0.9) Sodium Level 132 MEQ/L 135 MEQ/L (136-145) (136-145) Total Bilirubin 2.0 MG/DL 1.4 MG/DL (0.2-1.0) (0.2-1.0) Aspartate Amino Transf 239 U/L (15-37) 131 U/L (15-37) (AST/SGOT) Alanine Aminotransferase 285 U/L (12-78) 246 U/L (12-78) (ALT/SGPT) Alkaline Phosphatase 128 U/L (45-117) Vitamin B12 Level 1015 PG/ML (193-986) Neutrophils # (Auto) 1.5 TH/MM3 1.6 TH/MM3 (1.8-7.7) (1.8-7.7) Ferritin 1605 NG/ML (26-388) Cholesterol Level 224 MG/DL (120-200) LDL Cholesterol 161 MG/DL (0-99) Direct Bilirubin 0.6 MG/DL (0.0-0.2) Laboratory Results Test 12/22/16 12:59 Hemoglobin A1c 4.8 % (4.3-6.0) Triglycerides Level 102 MG/DL (42-150) Cholesterol Level 224 MG/DL (120-200) LDL Cholesterol 161 MG/DL (0-99) HDL Cholesterol 42.6 MG/DL (40.0-60.0) Summary of Procedures No procedures done Imaging Last Impressions Head CT 12/21/16 0000 Signed Impressions: Service Date/Time: Wednesday, December 21, 2016 22:48 - CONCLUSION: Negative noncontrast CT brain. Ravin Clemons MD Chest X-Ray 12/21/16 0000 Signed Impressions: Service Date/Time: Wednesday, December 21, 2016 14:22 - CONCLUSION: No acute disease. Robel Yañez MD Abdomen/Pelvis CT 12/21/16 0000 Signed Impressions: Service Date/Time: Wednesday, December 21, 2016 22:51 - CONCLUSION: 1. Hepatomegaly and diffuse fatty change in the liver without focal lesion. 2. Otherwise negative CT abdomen/pelvis with contrast. Ravin Clemons MD Gall Bladder Ultrasound 12/20/16 1627 Signed Impressions: Service Date/Time: Tuesday, December 20, 2016 16:33 - CONCLUSION: 1. Increased echogenicity of the liver suggesting diffuse fatty infiltration. 2. No gallstones identified. Maik Lopez MD Pending results at discharge: No Medications # of Antipsychotic meds at D/C: 0 Approp Antipsych med options 1 - Minimum of three failed multiple trials of monotherapy. 2 - Documented plan to taper to monotherapy due to previous use of multiple meds OR cross-taper in progress at D/C. 3 - Documentation of augmentation of Clozapine. 4 - Justification other than those listed in allowable values 1-3, document here : Discharge Discharge Date: Dec 24, 2016 Discharge Diagnosis: (1) Unspecified psychosis ICD Code: F29 Mental Status Exam at Disch man, age appearing, on the street clothing, good hygiene, calm, cooperative and pleasant. His speech is fluent and spontaneous. His mood is "absolutely fine"his affect is euthymic. He stopped processes logical, coherent and relevant. His thought process is devoid of paranoia, delusions, suicidal and homicidal ideation, visual and auditory hallucinations. Insight, impulse control and judgment is good. Cognition is intact. Pt Condition on Discharge: Stable Discharge Disposition: Discharge Home Discharge Instructions Diet Instructions: As Tolerated, No Restrictions Activities you can perform: Regular-No Restrictions Scheduled Appointment: Yazan Barragan Act Discharge Time > 30 minutes Discharge/Advance Care Plan Health Problems: (1) Unspecified psychosis Goals to promote your health * To prevent worsening of your condition and complications * To maintain your health at the optimal level Directions to meet your goals Take your medications as prescribed Follow your dietary instruction Follow activity as directed Keep your appointments as scheduled Take your immunizations and boosters as scheduled If your symptoms worsen call your PCP, if no PCP go to Urgent Care Center or Emergency Room For 29/11 questions related to your inpatient stay or results of tests pending at discharge, please contact Dr. Tariq Huffman at Smoking is Dangerous to Your Health. Avoid second hand smoking Tariq Huffman MD Dec 24, 2016 09:29
[2016-12-24] MEDS: SODIUM CHLOR 0.9% 1000 ML INJ 1,000 ML IV SCH (11:00)
--- NOTE | 2016-12-24 11:54 | HHI.PR ---
Subjective Remarks fu delirium tremens, seizure, elevated liver enzymes patient denies tremors, hallucinations denies cp/sob no diarrhea Objective Vitals Vital Signs Date Time Temp Pulse Resp B/P Pulse Ox O2 Delivery O2 Flow Rate FiO2 12/24/16 06:02 74 15 107/52 99 12/23/16 18:00 98.7 107 18 125/72 98 I/O 12/23/16 12/23/16 12/23/16 12/24/16 12/24/16 12/24/16 06:59 14:59 22:59 06:59 14:59 22:59 Intake Total 240 ml 1920 ml 720 ml 120 ml Balance 240 ml 1920 ml 720 ml 120 ml Intake Oral 240 ml 1920 ml 720 ml 120 ml # Voids 1 2 1 2 # Bowel Movements 1 Result Diagram: 12/23/16 1329 12/22/16 1259 Imaging Last Impressions Head CT 12/21/16 0000 Signed Impressions: Service Date/Time: Wednesday, December 21, 2016 22:48 - CONCLUSION: Negative noncontrast CT brain. Ravin Clemons MD Chest X-Ray 12/21/16 0000 Signed Impressions: Service Date/Time: Wednesday, December 21, 2016 14:22 - CONCLUSION: No acute disease. Robel Yañez MD Abdomen/Pelvis CT 12/21/16 0000 Signed Impressions: Service Date/Time: Wednesday, December 21, 2016 22:51 - CONCLUSION: 1. Hepatomegaly and diffuse fatty change in the liver without focal lesion. 2. Otherwise negative CT abdomen/pelvis with contrast. Ravin Clemons MD Gall Bladder Ultrasound 12/20/16 1627 Signed Impressions: Service Date/Time: Tuesday, December 20, 2016 16:33 - CONCLUSION: 1. Increased echogenicity of the liver suggesting diffuse fatty infiltration. 2. No gallstones identified. Maik Lopez MD Objective Remarks Awake and alert No respiratory distress S1S2 + RRR, no MRG Clear Lungs BL Abdomen is soft, Bowel sounds present and normoactive no edema in lower extremities. Medications and IVs Current Medications Medications (Trade) Dose Ordered Sig/Vitaliy Route Start Time Stop Time Status Last Admin (NS Flush) 2 ml UNSCH PRN IV FLUSH 12/20/16 15:00 (Atarax) 50 mg Q6H PRN PO 12/20/16 23:45 12/22/16 02:56 (Benadryl) 50 mg Q6H PRN PO 12/20/16 23:45 12/21/16 09:25 (Benadryl Inj) 50 mg Q6H PRN IM 12/20/16 23:45 (Benadryl) 50 mg HS PRN PO 12/20/16 23:45 12/23/16 22:58 (Benadryl Inj) 50 mg HS PRN IM 12/20/16 23:45 (Desyrel) 50 mg HS PRN PO 12/20/16 23:45 12/22/16 01:51 (Milk Of Magnesia Liq) 30 ml DAILY PRN PO 12/20/16 23:45 (Mag-Al Plus Susp Liq) 30 ml Q6H PRN PO 12/20/16 23:45 12/21/16 16:30 (Habitrol 21 Mg Patch.24 Hr) 1 patch DAILY T-DERMAL 12/21/16 09:00 12/24/16 09:10 Miscellaneous Information 1 HS T-DERMAL 12/21/16 21:00 12/23/16 21:00 (Ativan) 1 mg Q4H PRN PO 12/20/16 23:45 12/23/16 21:17 (Ativan Inj) 1 mg Q4H PRN IV PUSH 12/20/16 23:45 (Ativan) 2 mg Q2H PRN PO 12/20/16 23:45 12/22/16 09:03 (Ativan Inj) 2 mg Q2H PRN IV PUSH 12/20/16 23:45 12/22/16 12:24 (Ativan Inj) 2 mg Q1H PRN IV PUSH 12/20/16 23:45 12/22/16 14:20 (Ativan Inj) 2 mg Q15M PRN IV PUSH 12/20/16 23:45 (Romazicon Inj) 0.2 mg Q1M PRN IV PUSH 12/20/16 23:45 (Lactulose Liq) 30 ml DAILY PO 12/22/16 09:00 12/24/16 09:09 (Vitamin B1) 100 mg DAILY PO 12/21/16 18:00 12/24/16 09:10 Folic Acid 1 mg 1 mg DAILY PO 12/21/16 18:00 12/24/16 09:09 (NS 1000 ml Inj) 1,000 ml @ 100 mls/hr Q10H IV 12/22/16 09:00 12/23/16 22:51 (risperDAL) 2 mg BID PO 12/22/16 21:00 12/24/16 09:09 (Protonix) 40 mg DAILY PO 12/22/16 11:45 12/24/16 09:10 (Librium) 25 mg Q8HR PO 12/23/16 15:00 12/24/16 05:18 A/P Problem List: (1) Alcohol withdrawal delirium ICD Code: F10.231 Status: Acute (2) Transaminitis ICD Code: R74.0 Status: Acute (3) Alcohol withdrawal seizure ICD Code: F10.239 Status: Resolved Assessment and Plan 6 year old male with hx of ETOH abuse sent from [facility] for shaking and hallucinations Substance induced mood disorder hallucinations management per psychiatric team Seizure likely related to ETOH withdrawal ETOH withdrawal/Delirium tremens Seizure precautions CT head without contrast ordered and negative EEG ordered and unremarkable Continue thiamine and folic acid supplementation Continue CIWA protocol 12/24 Dc librium. Delirium tremens seems to have resolved. the patient is stable for DC. Elevated liver enzymes and abd pain likely related to Alcohol induced hepatitis Fatty Liver hepatitis profile negative US gallbladder reviewed and reveals: 1. Increased echogenicity of the liver suggesting diffuse fatty infiltration. 2. No gallstones identified. lipase 181 ammonia 42 ion admission decreased to 20 after lactulose, continue lactulose daily CT abdomen and pelvis showed hepatomegaly and diffuse fatty change in the liver without focal lesion. Otherwise negative CT abdomen and pelvis. 12/24 Liver enzymes trending down. AMS- metabolic encephalopathy- likely relate to withdrawal R/O infection causes UA reviewed negative for infection no culture indicated CXR reveals no acute disease process afebrile, WBC 5.8 --> 4.9 check TSH, RPR, B12 level ----> appears negative, B12 level is normal, TSH is normal 12/23 encephalopathy resolving. Due to etoh withdrawal Hyponatremia Likely hypovolemic hyponatremia. I will start the patient on IV fluids with normal saline. Continue to monitor BMP. 12/24 resolved. Tachycardia Likely autonomic hyperreactivity due to alcohol withdrawal. 12/23 check EKG. Tachycardia seems to be improving. Tobacco abuse advised smoking cessation - continue nicotine patch. DVT prophylaxis: avoid chemical DVT prophylaxis in light of liver disease, early ambulation with assistance Discharge Planning Medically clear for discharge. Alexander Aguilar MD Dec 24, 2016 11:54
[2016-12-26 03:49] LABS: MITOCHONDRIAL ABS LESS THAN 20.0 U (())
== END 2016-12-24 13:10 | disposition home or self-care (01) | DRG 885 ==
LOC: NEPD 13:51 → NEDA 12-21 00:37 → H260 12-21 01:45 → H4EA 12-21 13:00
PROVIDERS: ADMIT Psychiatry & Neurology Psychiatry; ATTEND Psychiatry & Neurology Psychiatry
DX: F29 Unspecified psychosis not due to a substance or known physiological condition (principal); G93.41 Metabolic encephalopathy; F10.231 Alcohol dependence with withdrawal delirium; K76.0 Fatty (change of) liver, not elsewhere classified; E87.1 Hypo-osmolality and hyponatremia; K70.10 Alcoholic hepatitis without ascites; F17.210 Nicotine dependence, cigarettes, uncomplicated; F12.90 Cannabis use, unspecified, uncomplicated; K21.9 Gastro-esophageal reflux disease without esophagitis; R56.9 Unspecified convulsions; R00.0 Tachycardia, unspecified; R74.0 Nonspecific elevation of levels of transaminase and lactic acid dehydrogenase [LDH]
CPT/HCPCS: 70450; 71010; 74177; 76705; 80048; 80053; 80061; 80074; 80076; 80307; 81001; 82103; 82105; 82140; 82390; 82607; 82728; 83036; 83520; 83540; 83550; 83690; 83735; 84100; 84443; 85025; 85610; 85730; 86038; 86255; 86592; 95819; 96372; 99285; J1630; J2060; J7030; Q0163; Q9963; Q9967